=== PATIENT | female | born 1970 | race Caucasian/White ===

== ENCOUNTER 2016-10-26 21:50 | Emergency (ER) | payer OTHER ==
[2016-10-26 22:05] VITALS: BP 162/82; PULSE 73; RESP 18; TEMP 98.5
[2016-10-26 22:43] LABS: Basophils # (A) 0.1 k/uL (0-0.2); Basophils % (A) 1 %; CH 27.8; CHCM 32.6; Eosinophils # (A) 0.3 k/uL (0-0.7); Eosinophils % (A) 2 %; HCT 43.9 % (34.0-46.0); HDW 2.37; HGB 14.1 gm/dL (11.4-16.0); Luc # (Auto) 0.22; Luc % (Auto) 2; Lymphocytes # (A) 3.2 k/uL (1.0-4.8); Lymphocytes % (A) 28 %; MCH 27.6 pg (25.0-35.0); MCHC 32.2 g/dL (31.0-37.0); MCV 85.7 fL (80.0-100.0); Mean Platelet Volume 7.9; Monocytes # (A) 0.5 k/uL (0-1.0); Monocytes % (A) 4 %; Neutrophils # (A) 7.4 k/uL (1.3-7.7); Neutrophils % (A) 63 %; RBC 5.12 m/uL (3.80-5.40); RDW 12.8 % (11.5-15.5); WBC 11.7 k/uL (3.8-10.6); WBC (Perox) 11.23
[2016-10-26 22:51] LABS: Amorphous Sediment,Urine Occasional /hpf; Appearance,Urine Clear (Clear); Bacteria,Urine Rare /hpf; Bilirubin,Urine Negative (Negative); Glucose,Urine (UA) Negative (Negative); Ketones,Urine Negative (Negative); Leukocyte Esterase,Urine Small (Negative); Mucus,Urine Rare /hpf; Nitrite,Urine Negative (Negative); Particle Count 3185; Protein,Urine Negative (Negative); RBC,Urine 1 /hpf (0-5); Specific Gravity,Urine 1.015 (1.001-1.035); Squamous Epithelial Cell,Urine 2 /hpf (0-4); UA Billing (MACRO vs. MICRO) MICRO; Urobilinogen,Urine <2.0 mg/dL (<2.0); WBC,Urine 4 /hpf (0-5)
[2016-10-26 22:55] LABS: ALT 32 U/L (9-52); AST 19 U/L (14-36); Alkaline Phosphatase 85 U/L (38-126); Anion Gap 12 mmol/L; Blood Urea Nitrogen 22 mg/dL (7-17); Calcium 9.5 mg/dL (8.4-10.2); Carbon Dioxide 25 mmol/L (22-30); Chloride 102 mmol/L (98-107); Glucose 88 mg/dL (74-99); Magnesium 1.6 mg/dL (1.6-2.3); Non-African American GFR(MDRD) >60 (>60 ml/min/1.73 sqM); Sodium 139 mmol/L (137-145); Total Bilirubin 0.2 mg/dL (0.2-1.3); Total Protein 7.3 g/dL (6.3-8.2)
--- NOTE | 2016-10-27 00:14 | US ---
Exam: US ABDOMEN History: Pain. Comparison: Correlated with noncontrast CT of the abdomen and pelvis dated 08/27/11. Technique: Grayscale and color images were provided. Findings: Technically limited due to overlying bowel gas. The liver measures 14.6 cm. No focal lesion appreciated. No gallstone. No gallbladder wall thickening or pericholecystic fluid. The CBD is unremarkable. The pancreas is not well-seen secondary to overlying bowel gas. The spleen and left kidney are unremarkable. There is mild right hydronephrosis. The visualized portions of the IVC and aorta are unremarkable. Impression: Mild right hydronephrosis.
--- NOTE | 2016-10-27 00:38 | ED ---
Abdominal Pain HPI - General Chief Complaint: Abdominal Pain Stated Complaint: abdominal pain Time Seen by Provider: 10/26/16 22:11 Source: patient, RN notes reviewed Mode of arrival: ambulatory Limitations: no limitations - History of Present Illness Initial Comments: 46-year-old female presenting for abdominal pain. Patient states that she has had recurrent abdominal pain for the past 8 or 9 months. She states this pain is normally located suprapubic. States she has had extensive workup by PCP without diagnosis of this point. She states that tonight she was at work and felt sudden onset of right upper quadrant pain which was very sharp in nature. States pain felt like it started around her bellybutton and radiated to right upper quadrant and back. States the pain is mostly resolved at this point. It was associated nausea. She denies any fevers or chills. She denies any chest pain or shortness breath. She has not taking any medications for this. - Related Data Home Medications Medication Instructions Recorded Confirmed ALPRAZolam [Xanax] 0.25 mg PO DAILY PRN 10/26/16 10/26/16 Albuterol Inhaler [Ventolin Hfa 1 - 2 puff INHALATION RT-Q6H PRN 10/26/16 Inhaler] Ergocalciferol [Vitamin D2] 50,000 unit PO TU 10/26/16 10/26/16 Ibuprofen [Motrin] 800 mg PO ONCE PRN 10/26/16 10/26/16 Omeprazole Magnesium [Prilosec Otc] 20 mg PO BID 10/26/16 10/26/16 PARoxetine HCL [Paxil] 10 mg PO DAILY 10/26/16 10/26/16 Previous Rx's Medication Instructions Recorded Dicyclomine [Bentyl] 20 mg PO QID PRN #16 tablet 10/27/16 HYDROcodone/APAP 5-325MG [Roark 1 tab PO Q6HR PRN #12 tab 10/27/16 5-325] Ondansetron Odt [Zofran Odt] 4 mg PO Q8HR PRN #12 tab 10/27/16 Allergies Allergy/AdvReac Type Severity Reaction Status Date / Time sertraline HCl [From Zoloft] Allergy Nausea & Verified 10/26/16 22:14 Vomiting & Diarrhea sulfamethoxazole Allergy Rash/Hives Verified 10/26/16 22:14 [From Bactrim] trimethoprim [From Bactrim] Allergy Rash/Hives Verified 10/26/16 22:14 Corticosteroids AdvReac Unknown Verified 10/26/16 22:14 (Glucocorticoids) Review of Systems ROS Statement: Those systems with pertinent positive or pertinent negative responses have been documented in the HPI. ROS Other: All systems not noted in ROS Statement are negative. Past Medical History Additional Past Medical History / Comment(s): kidney disease, History of Any Multi-Drug Resistant Organisms: None Reported Past Surgical History: Appendectomy, Tubal Ligation Additional Past Surgical History / Comment(s): uterine ablasion Past Psychological History: Depression Smoking Status: Never smoker Past Alcohol Use History: None Reported Past Drug Use History: None Reported General Exam - General Exam Comments Initial Comments: General: Awake and Alert. No acute distress. Does not appear acutely ill. Obese. Eyes: GLO, EOM intact. No nystagmus. No scleral icterus. HENT: Atraumatic, normocephalic. Mucous membranes moist. Trachea midline. Neck: The neck is supple, there is no tenderness or JVD. Cardiovascular: Regular rate and rhythm. No murmur, rub, or gallop is appreciated. Distal pulses intact. Respiratory: Lungs are clear to auscultation bilaterally. No wheezes, rales, rhonchi. No respiratory distress. Gastrointestinal: Soft, right upper quadrant tenderness. No rebound or guarding. Non-distended. No masses or organomegaly noted. No CVA tenderness. Musculoskeletal: No tenderness. Normal ROM. No gross deformity. No strength deficits. Neurological: A&Ox3. CN II-XII grossly intact, There are no obvious motor or sensory deficits. Coordination appears grossly intact. Speech is normal. Skin: Skin is warm and dry and no rashes or lesions are noted. Psychiatric: Cooperative, appropriate mood & affect, normal judgment. Limitations: no limitations Course Vital Signs 10/26/16 22:03 Temperature 98.5 F Pulse Rate 73 Respiratory 18 Rate Blood Pressure 162/82 O2 Sat by Pulse 96 Oximetry Medical Decision Making - Medical Decision Making 46-year-old female presenting for abdominal pain. Patient is right upper quadrant tenderness on examination but no evidence of acute peritonitis this time. Lab work and imaging ordered. Ultrasound with evidence of right hydronephrosis but no evidence of acute cholecystitis - patient states a history of this in the past lasted a neurological procedure about 5 years ago. CBC with mild leukocytosis which is likely reactive. BMP is stable with stable renal function. UA with mild abnormalities but no convincing evidence of infection. Patient reevaluated remained stable. No significant return of abdominal pain. Updated on results and imaging. Discussed nonspecific etiology of pain at this time, but reassuring findings. Discussed evidence of right hydronephrosis recommended urology follow-up referral given. Discussed chronic abdominal pain and follow-up with GI for further evaluation including possible HIDA scan and colonoscopy/EGD. Patient also states this time that she is currently following up with Dr. Anderson was recently found to be AMA positive and is in process of workup for possible autoimmune disorder. Discussed continue follow-up with Dr. Anderson as well as PCP. Discussed concerning signs symptoms for immediate return to the ED. Patient is agreeable with plan and discharge home. Rx for pain and nausea medication provided. - Lab Data Result diagrams: 10/26/16 22:25 10/26/16 22:25 Lab Results 10/26/16 10/26/16 10/26/16 Range/Units 22:25 22:25 22:25 WBC 11.7 H (3.8-10.6) k/uL RBC 5.12 (3.80-5.40) m/uL Hgb 14.1 (11.4-16.0) gm/dL Hct 43.9 (34.0-46.0) % MCV 85.7 (80.0-100.0) fL MCH 27.6 (25.0-35.0) pg MCHC 32.2 (31.0-37.0) g/dL RDW 12.8 (11.5-15.5) % Plt Count 276 (150-450) k/uL Neutrophils % 63 % Lymphocytes % 28 % Monocytes % 4 % Eosinophils % 2 % Basophils % 1 % Neutrophils # 7.4 (1.3-7.7) k/uL Lymphocytes # 3.2 (1.0-4.8) k/uL Monocytes # 0.5 (0-1.0) k/uL Eosinophils # 0.3 (0-0.7) k/uL Basophils # 0.1 (0-0.2) k/uL Sodium 139 (137-145) mmol/L Potassium 4.0 (3.5-5.1) mmol/L Chloride 102 (98-107) mmol/L Carbon Dioxide 25 (22-30) mmol/L Anion Gap 12 mmol/L BUN 22 H (7-17) mg/dL Creatinine 0.90 (0.52-1.04) mg/dL Est GFR (MDRD) Af Amer >60 (>60 ml/min/1.73 sqM) Est GFR (MDRD) Non-Af >60 (>60 ml/min/1.73 sqM) Glucose 88 (74-99) mg/dL Calcium 9.5 (8.4-10.2) mg/dL Magnesium 1.6 (1.6-2.3) mg/dL Total Bilirubin 0.2 (0.2-1.3) mg/dL AST 19 (14-36) U/L ALT 32 (9-52) U/L Alkaline Phosphatase 85 (38-126) U/L Total Protein 7.3 (6.3-8.2) g/dL Albumin 4.1 (3.5-5.0) g/dL Lipase 68 (23-300) U/L Urine Color Yellow Urine Appearance Clear (Clear) Urine pH 5.0 (5.0-8.0) Ur Specific [place] 1.015 (1.001-1.035) Urine Protein Negative (Negative) Urine Glucose (UA) Negative (Negative) Urine Ketones Negative (Negative) Urine Blood Negative (Negative) Urine Nitrite Negative (Negative) Urine Bilirubin Negative (Negative) Urine Urobilinogen <2.0 (<2.0) mg/dL Ur Leukocyte Esterase Small H (Negative) Urine RBC 1 (0-5) /hpf Urine WBC 4 (0-5) /hpf Ur Squamous Epith Cells 2 (0-4) /hpf Amorphous Sediment Occasional H (None) /hpf Urine Bacteria Rare H (None) /hpf Hyaline Casts 21 H (0-2) /lpf Urine Mucus Rare H (None) /hpf Urine HCG, Qual (Not Detectd) 10/26/16 Range/Units 22:25 WBC (3.8-10.6) k/uL RBC (3.80-5.40) m/uL Hgb (11.4-16.0) gm/dL Hct (34.0-46.0) % MCV (80.0-100.0) fL MCH (25.0-35.0) pg MCHC (31.0-37.0) g/dL RDW (11.5-15.5) % Plt Count (150-450) k/uL Neutrophils % % Lymphocytes % % Monocytes % % Eosinophils % % Basophils % % Neutrophils # (1.3-7.7) k/uL Lymphocytes # (1.0-4.8) k/uL Monocytes # (0-1.0) k/uL Eosinophils # (0-0.7) k/uL Basophils # (0-0.2) k/uL Sodium (137-145) mmol/L Potassium (3.5-5.1) mmol/L Chloride (98-107) mmol/L Carbon Dioxide (22-30) mmol/L Anion Gap mmol/L BUN (7-17) mg/dL Creatinine (0.52-1.04) mg/dL Est GFR (MDRD) Af Amer (>60 ml/min/1.73 sqM) Est GFR (MDRD) Non-Af (>60 ml/min/1.73 sqM) Glucose (74-99) mg/dL Calcium (8.4-10.2) mg/dL Magnesium (1.6-2.3) mg/dL Total Bilirubin (0.2-1.3) mg/dL AST (14-36) U/L ALT (9-52) U/L Alkaline Phosphatase (38-126) U/L Total Protein (6.3-8.2) g/dL Albumin (3.5-5.0) g/dL Lipase (23-300) U/L Urine Color Urine Appearance (Clear) Urine pH (5.0-8.0) Ur Specific [place] (1.001-1.035) Urine Protein (Negative) Urine Glucose (UA) (Negative) Urine Ketones (Negative) Urine Blood (Negative) Urine Nitrite (Negative) Urine Bilirubin (Negative) Urine Urobilinogen (<2.0) mg/dL Ur Leukocyte Esterase (Negative) Urine RBC (0-5) /hpf Urine WBC (0-5) /hpf Ur Squamous Epith Cells (0-4) /hpf Amorphous Sediment (None) /hpf Urine Bacteria (None) /hpf Hyaline Casts (0-2) /lpf Urine Mucus (None) /hpf Urine HCG, Qual Not Detected (Not Detectd) - Radiology Data Radiology results: report reviewed, image reviewed Disposition Clinical Impression: Nonspecific abdominal pain, Hydronephrosis, right, Nausea Disposition: HOME SELF-CARE Condition: Stable Instructions: Abdominal Pain (ED) Prescriptions: Dicyclomine [Bentyl] 20 mg PO QID PRN #16 tablet PRN Reason: abdominal pain HYDROcodone/APAP 5-325MG [Roark 5-325] 1 tab PO Q6HR PRN #12 tab PRN Reason: Pain Ondansetron Odt [Zofran Odt] 4 mg PO Q8HR PRN #12 tab PRN Reason: Nausea Referrals: Iban Head MD [Primary Care Provider] - 1-2 days Indy Mckenna MD [STAFF PHYSICIAN] - 1-2 days Abimael Villar MD [STAFF PHYSICIAN] - 1-2 days Time of Disposition: 01:08
== END 2016-10-27 01:18 | disposition home or self-care (01) ==
LOC: EC 21:50
DX: N13.30 Unspecified hydronephrosis (principal); R11.0 Nausea; F32.9 Major depressive disorder, single episode, unspecified; Z79.899 Other long term (current) drug therapy; Z88.2 Allergy status to sulfonamides; Z88.8 Allergy status to other drugs, medicaments and biological substances; Z98.890 Other specified postprocedural states
CPT/HCPCS: 36415; 76700; 80053; 81001; 81025; 83690; 83735; 85025; 99284

== ENCOUNTER → 2016-11-24 | Outpatient (CLI) | payer OTHER ==
[2016-11-24 07:54] LABS: Blood Urea Nitrogen 15 mg/dL (7-17); Non-African American GFR(MDRD) >60 (>60 ml/min/1.73 sqM)
--- NOTE | 2016-11-24 10:25 | CT ---
EXAMINATION TYPE: CT urogram wo/w con DATE OF EXAM: 11/24/2016 HISTORY: Hydronephrosis, N13.30 CT DLP: 3653mGycm Automated Exposure Control for Dose Reduction was Utilized. CONTRAST: CT scan of the abdomen and pelvis is performed without and with IV Contrast, patient injected with 10 0 mL of Omnipaque 300. COMPARISON: Ultrasound abdomen 10/26/2016 FINDINGS: LUNG BASES: No significant abnormality is appreciated. LIVER/GB: Liver shows low attenuation possibly due to steatosis, the liver shows no mass. Gallbladder is normal. PANCREAS: No significant abnormality is seen. SPLEEN: No significant abnormality is seen. ADRENALS: No significant abnormality is seen. KIDNEYS: Mild right-sided hydronephrosis is present. Relative narrowing of the proximal ureter noted posterior to the gonadal vein on the right, more normal caliber noted more distally. There is no uret eral filling defect evident however there is a short segment of the distal ureter is not opacified. T he ureters show normal course. Right kidney shows a small low dense focus measuring 1 cm at the lower pole likely a cortical cyst. No evident renal calculi. No left-sided hydronephrosis. BOWEL: Patient is likely post appendectomy, metallic densities are present at the expected level of t he appendix. UTERUS/ADNEXA: No gross abnormality seen. LYMPH NODES: No greater than 1cm abdominal or pelvic lymph nodes are appreciated. OSSEOUS STRUCTURES: No significant abnormality is seen. OTHER: No significant additional abnormality is seen. Urinary bladder is unremarkable as seen. IMPRESSION: There is mild right-sided hydronephrosis as described. Probable cortical cyst right kidne y. Postop changes. Distal right ureter shows a normal caliber, short segment of nonvisualization of t he right ureter.
== END | disposition home or self-care (01) ==
LOC: RADCTMAIN 07:18
PROVIDERS: ATTEND Urology
DX: N13.30 Unspecified hydronephrosis (principal); L01.1 Impetiginization of other dermatoses; Z88.2 Allergy status to sulfonamides; Z88.8 Allergy status to other drugs, medicaments and biological substances
CPT/HCPCS: 82565; 84520; 74178; 36415; 74400; Q9967

== ENCOUNTER → 2017-01-12 | Outpatient (CLI) | payer OTHER ==
--- NOTE | 2017-01-13 10:37 | MM ---
Reason for exam: screening (asymptomatic). Last mammogram was performed 4 years and 6 months ago. History: Family history of breast cancer in aunt and breast cancer in grandmother. Physical Findings: A clinical breast exam by your physician is recommended on an annual basis and results should be correlated with mammographic findings. MG Screening Mammo w CAD Bilateral CC and MLO view(s) were taken. Prior study comparison: July 21, 2012, bilateral digital screening mammo w/CAD. No significant changes when compared with prior studies. ASSESSMENT: Benign, BI-RAD 2 RECOMMENDATION: Routine screening mammogram of both breasts in 1 year.
== END | disposition home or self-care (01) ==
LOC: RADMAMWWP 08:06
PROVIDERS: ATTEND Obstetrics & Gynecology
DX: Z12.31 Encounter for screening mammogram for malignant neoplasm of breast (principal)

== ENCOUNTER 2017-02-16 06:59 | Day surgery (SDC) | payer OTHER ==
[2017-02-11 13:16] VITALS: BMI 48.0
[~2017-02-16 06:59] MED LIST: HYDROmorphone 0.5 MG/0.5 ML SYRINGE IVP PRN; LACTATED RINGERS 1,000 ML IV SCH; LIDOCAINE 1% 20 ML VIAL (10MG/ML) FOR IV START INTRADERMA PRN; ONDANSETRON 4 MG/2 ML VIAL IVP ONE; Pre Op ABX Message 1 EACH MISC MISCELLANE ONE; SCOPOLAMINE 1.5MG/72HR PATCH TRANSDERM ONE; ceFAZolin 1,000 MG in DEXTROSE/WATER 1 50ML.BAG IV ONE
[2017-02-16] MEDS ORDERED: ALBUTEROL INHALER 60 PUFF/8 GM INHALER INHALATION ONE (07:58)
[2017-02-16] MEDS ORDERED: PROPOFOL 10 MG/ML 20 ML VIAL IV ONE (07:58)
[2017-02-16] MEDS ORDERED: LIDOCAINE 1% INJ 10MG/ML (20 ML MDV) ONE (07:58)
[2017-02-16] MEDS ORDERED: SUCCINYLCHOLINE CHLORIDE VIAL 200 MG/10 ML VIAL IV ONE (07:58)
[2017-02-16] MEDS ORDERED: MIDAZOLAM 2 MG/2 ML VIAL ONE (07:58)
[2017-02-16] MEDS ORDERED: fentaNYL (PF) 50 MCG/ML 2 ML AMP ONE (07:58)
[2017-02-16] MEDS ORDERED: VASOPRESSIN 20 UNIT/ML 1 ML VIAL SQ ONE (08:23)
[2017-02-16] MEDS ORDERED: GENTAMICIN 80 MG in SODIUM CHLORIDE 0.9% 500 ML IRRIGATION ONE (08:33)
[2017-02-16] MEDS ORDERED: BACITRACIN 500 UNIT/GM OINT 28.4 GM TUBE TOPICAL ONE (08:40)
[2017-02-16] MEDS ORDERED: DICYCLOMINE 20 MG TAB PO PRN (08:56)
--- NOTE | 2017-02-16 09:03 | P.OP ---
Date of Procedure: 02/16/17 Preoperative Diagnosis: Stress urinary incontinence Postoperative Diagnosis: Same Procedure(s) Performed: SPARC, pubovaginal sling, cystoscopy Anesthesia: YOLANDAA Surgeon: Abimael Villar Estimated Blood Loss (ml): 100 Pathology: none sent Condition: stable Disposition: PACU Indications for Procedure: The patient is a 46-year-old female with documented stress urinary incontinence. She does have morbid obesity. Because of the stress urinary incontinence and the morbid obesity I will do a pubovaginal sling with SPARC graft Description of Procedure: Patient brought to the operating suite and given a successful general endotracheal anesthesia. She's placed lithotomy position and sterile prep and drape. The labor sewn laterally to silk. A Gaxiola catheters introduced sterilely. A batch speculum was introduced and there is a small rectocele and a grade 1 cystocele. The anterior vaginal mucosa was elevated off the submucosa with 20 units of Pitressin and 60 mL of saline. I dissect lateral the bladder neck bilaterally. I make 2 incisions at the corners of each pubis. I passed the SPARC introducers retropubically into the vaginal space making sure not to injure the bladder. Cystoscopy is performed to make sure there is no bladder injury and there is none. I then attached the SPARC grafted introducers and pull it back retropubically into the suprapubic region. The graft lay at the bladder neck. I reinspected the bladder neck and there is no injury. The bladder neck elevates nicely upon elevation of the graft. The stent fit between the graft and the urethra. The Gaxiola catheter was replaced. Vaginal mucosa was closed with a 3-0 Vicryl. This reduces a cystocele. The redundant graft at the suprapubic incision is removed and the incisions closed with 4-0 Vicryl. The vaginal pack is placed. The labial stitches are removed. The urine remains clear. The patient's awakened and returned recovery room good condition. Blood loss is 100 mL. The patient be placed in the hospital postoperatively.
[2017-02-16] MEDS: KETOROLAC 30 MG/ML 1 ML VIAL IVP PRN ×2 (09:26→16:17)
[2017-02-16] MEDS: PARoxetine 10 MG TAB PO SCH ×2 (12:16→20:30)
[2017-02-16] MEDS: PANTOPRAZOLE 40 MG TABLET PO SCH ×2 (12:16→17:39)
[2017-02-16] MEDS: LORATADINE 10 MG TAB PO SCH ×2 (12:16→20:29)
[2017-02-16] MEDS: DEXTROSE 5%-0.45% NACL 1,000 ML IV SCH ×2 (12:29→22:20)
[2017-02-16] MEDS: HYDROcodone/APAP 5-325MG 1 EACH TAB PO PRN (21:50)
[2017-02-17 00:38] VITALS: TEMP 98.9
[2017-02-17] MEDS: HYDROcodone/APAP 5-325MG 1 EACH TAB PO PRN ×2 (04:03→09:48)
--- NOTE | 2017-02-17 06:38 | P.DS ---
Providers Attending physician: Abimael Villar Primary care physician: [facility] Course: The patient is a 46-year-old female admitted to the hospital 02/2017 for a bladder neck suspension. She underwent a pubovaginal sling with SPARC grafts. She has done well. She is afebrile. She is having some mild discomfort this morning. The catheter and packing have been removed. If she voids okay she'll be discharged home. She'll be discharged home in care of her family regular diet limited activity. She'll follow-up in the office in one week. She'll stay off work for 3 weeks. Postoperative instructions been given. Good. Patient Condition at Discharge: Good Plan - Discharge Summary New Discharge Prescriptions: New HYDROcodone/APAP 5-325MG [Docena 5-325] 1 tab PO Q4HR PRN #14 tab PRN Reason: Pain No Action Ibuprofen [Motrin] 800 mg PO TID PRN PRN Reason: Pain Albuterol Inhaler [Ventolin Hfa Inhaler] 1 - 2 puff INHALATION RT-Q6H PRN PRN Reason: Shortness Of Breath Omeprazole Magnesium [Prilosec Otc] 20 mg PO BID PARoxetine HCL [Paxil] 10 mg PO BID ALPRAZolam [Xanax] 0.25 mg PO DAILY PRN PRN Reason: Anxiety Dicyclomine [Bentyl] 20 mg PO QID PRN #16 tablet PRN Reason: abdominal pain HYDROcodone/APAP 5-325MG [Docena 5-325] 1 tab PO Q6HR PRN #12 tab PRN Reason: Pain Loratadine 10 mg PO DAILY Acetaminophen [Tylenol Extra Strength] 500 mg PO Q6H PRN PRN Reason: Pain Discharge Medication List ALPRAZolam [Xanax] 0.25 mg PO DAILY PRN 10/26/16 [History] Albuterol Inhaler [Ventolin Hfa Inhaler] 1 - 2 puff INHALATION RT-Q6H PRN [History] Ibuprofen [Motrin] 800 mg PO TID PRN 10/26/16 [History] Omeprazole Magnesium [Prilosec Otc] 20 mg PO BID 10/26/16 [History] PARoxetine HCL [Paxil] 10 mg PO BID 10/26/16 [History] Dicyclomine [Bentyl] 20 mg PO QID PRN #16 tablet 10/27/16 [Rx] HYDROcodone/APAP 5-325MG [Docena 5-325] 1 tab PO Q6HR PRN #12 tab 10/27/16 [Rx] Acetaminophen [Tylenol Extra Strength] 500 mg PO Q6H PRN 02/11/17 [History] Loratadine 10 mg PO DAILY 02/11/17 [History] HYDROcodone/APAP 5-325MG [Docena 5-325] 1 tab PO Q4HR PRN #14 tab 02/17/17 [Rx] Follow up Appointment(s)/Referral(s): Abimael Villar MD [STAFF PHYSICIAN] - 1 Week Discharge Disposition: HOME SELF-CARE
[2017-02-17] MEDS: PANTOPRAZOLE 40 MG TABLET PO SCH (09:19)
[2017-02-17 12:50] VITALS: BP 105/59; PULSE 73; RESP 12
== END 2017-02-17 13:22 | disposition home or self-care (01) ==
LOC: OR 06:59 → 6PED 08:52 → OR 02-17 13:22
PROVIDERS: ATTEND Urology
DX: N39.3 Stress incontinence (female) (male) (principal); R35.0 Frequency of micturition; N05.9 Unspecified nephritic syndrome with unspecified morphologic changes; N83.201 Unspecified ovarian cyst, right side; E66.01 Morbid (severe) obesity due to excess calories; Z68.42 Body mass index [BMI] 45.0-49.9, adult; I10 Essential (primary) hypertension; K21.9 Gastro-esophageal reflux disease without esophagitis; M32.9 Systemic lupus erythematosus, unspecified; F41.9 Anxiety disorder, unspecified; J40 Bronchitis, not specified as acute or chronic; Z79.899 Other long term (current) drug therapy; Z88.2 Allergy status to sulfonamides; Z88.8 Allergy status to other drugs, medicaments and biological substances
CPT/HCPCS: 57288; 81025; C1771; J2250; J0330; J1580; J2405; J2001; J3010; J1885; J0690; J2704; J1170

== ENCOUNTER → 2017-05-06 | Outpatient (CLI) | payer OTHER ==
--- NOTE | 2017-05-08 13:13 | US ---
EXAMINATION TYPE: US venous doppler duplex LE LT DATE OF EXAM: 05/07/2017 11:09 AM COMPARISON: NONE CLINICAL HISTORY: Pain left lower leg M25.572, Swelling R60.9. Swelling for 3 weeks. SIDE PERFORMED: TECHNIQUE: The lower extremity deep venous system is examined utilizing real time linear array sonog marj with graded compression, doppler sonography and color-flow sonography. VESSELS IMAGED: External Iliac Vein (EIV) Common Femoral Vein Deep Femoral Vein Greater Saphenous Vein * Femoral Vein Popliteal Vein Small Saphenous Vein * Proximal Calf Veins (* superficial vessels) Left Leg: Negative for DVT Grayscale, color doppler, spectral doppler imaging performed of the deep veins of the left lower extr emity. There is normal flow, compressibility, vascular waveforms. Superficial greater saphenous and small saphenous veins show diminished color flow and absent compressibility. IMPRESSION: Superficial vein thrombosis is present. No acute DVT in the left lower extremity.
== END | disposition home or self-care (01) ==
LOC: RADUSWWP 12:20
PROVIDERS: ATTEND Orthopaedic Surgery
DX: I82.812 Embolism and thrombosis of superficial veins of left lower extremity (principal); R60.9 Edema, unspecified

== ENCOUNTER 2018-05-18 21:56 | Emergency (ER) | payer OTHER ==
[2018-05-18 22:05] VITALS: RESP 18; TEMP 98.2
[2018-05-18] MEDS ORDERED: ONDANSETRON 4 MG/2 ML VIAL IVP STA (22:26)
[2018-05-18] MEDS ORDERED: PANTOPRAZOLE 40 MG/10 ML VIAL IVP STA (22:26)
[2018-05-18] MEDS ORDERED: SODIUM CHLORIDE 0.9% 1,000 ML IV STA (22:26)
[2018-05-18] MEDS ORDERED: KETOROLAC 30 MG/ML 1 ML VIAL IVP STA (22:26)
[2018-05-18] MEDS ORDERED: HYDROmorphone 0.5 MG/0.5 ML SYRINGE IVP STA (22:26)
[2018-05-18 23:01] LABS: Basophils # (A) 0.1 k/uL (0-0.2); Basophils % (A) 1 %; Eosinophils # (A) 0.4 k/uL (0-0.7); Eosinophils % (A) 3 %; HCT 46.4 % (34.0-46.0); HGB 14.7 gm/dL (11.4-16.0); Lymphocytes # (A) 3.4 k/uL (1.0-4.8); Lymphocytes % (A) 26 %; MCHC 31.6 g/dL (31.0-37.0); MCV 85.4 fL (80.0-100.0); Mean Platelet Volume 7.3; Monocytes # (A) 0.7 k/uL (0-1.0); Monocytes % (A) 6 %; Neutrophils # (A) 8.3 k/uL (1.3-7.7); Neutrophils % (A) 63 %; Platelet Count 313 k/uL (150-450); RBC 5.43 m/uL (3.80-5.40); RDW 13.4 % (11.5-15.5); WBC 13.3 k/uL (3.8-10.6)
[2018-05-18 23:10] LABS: ALT 24 U/L (9-52); AST 18 U/L (14-36); Albumin 4.3 g/dL (3.5-5.0); Alkaline Phosphatase 87 U/L (38-126); Amylase 51 U/L (30-110); Anion Gap 11 mmol/L; Blood Urea Nitrogen 28 mg/dL (7-17); Calcium 9.8 mg/dL (8.4-10.2); Carbon Dioxide 24 mmol/L (22-30); Chloride 102 mmol/L (98-107); Glucose 92 mg/dL (74-99); Lipase 128 U/L (23-300); Potassium 4.5 mmol/L (3.5-5.1); Sodium 137 mmol/L (137-145); Total Bilirubin 0.4 mg/dL (0.2-1.3); Total Protein 7.8 g/dL (6.3-8.2)
--- NOTE | 2018-05-18 23:34 | US ---
EXAMINATION TYPE: US gallbladder DATE OF EXAM: 05/18/2018 COMPARISON: NONE CLINICAL HISTORY: Pain. RUQ Pain. Exam limitations due to body habitus. EXAM MEASUREMENTS: Liver Length: 15.8 cm Gallbladder Wall: 0.3 cm CBD: 0.4 cm Right Kidney: 12.3 x 6.0 x 4.3 cm Pancreas: Obscured by bowel gas Liver: Increased attenuation Gallbladder: wnl Evidence for sonographic Drew's sign: No CBD: wnl Right Kidney: No hydronephrosis or masses seen IMPRESSION: Normal exam. No gallstones or dilated ducts. No focal liver defect.
--- NOTE | 2018-05-18 23:41 | ED ---
Abdominal Pain HPI - General Source: patient, RN notes reviewed, old records reviewed Mode of arrival: ambulatory Limitations: no limitations <Brittaney Barker - Last Filed: 05/19/18 14:11> <Chantale Randolph - Last Filed: 05/21/18 02:04> - General Chief Complaint: Abdominal Pain Stated Complaint: Abd pain/Back pain Time Seen by Provider: 05/18/18 22:07 - History of Present Illness Initial Comments: Patient is a 47 year old female with CC of right abdominal pain, radiating towards the shoulder and nausea. Patient reports she has been having symptoms intermittently for the past few days. Patient states that the pain is worse today while at work and she had almost passed out due to the pain. She reports pain is worse with eating. Patient denies fevers or chills. No recent vomiting. She went to PCP today and had labs, and discussed the problem. Patient reports she had worsenign pain tonight. (Brittaney Barker) - Related Data Home Medications Medication Instructions Recorded Confirmed ALPRAZolam [Xanax] 0.25 mg PO DAILY PRN 10/26/16 05/18/18 Omeprazole Magnesium [Prilosec Otc] 20 mg PO BID 10/26/16 05/18/18 Albuterol Nebulized [Ventolin 2.5 mg INHALATION RT-Q6H PRN 05/18/18 05/18/18 Nebulized] Atenolol [Tenormin] 50 mg PO DAILY 05/18/18 05/18/18 Ergocalciferol [Vitamin D2] 50,000 unit PO SUWE 05/18/18 05/18/18 Fluticasone Propionate [Flovent 2 puff INHALATION RT-BID 05/18/18 05/18/18 Hfa 220 mcg] Lisinopril [Zestril] 20 mg PO DAILY 05/18/18 05/18/18 Oxybutynin Chloride 5 mg PO BID 05/18/18 05/18/18 PARoxetine [Paxil] 20 mg PO BID 05/18/18 05/18/18 Previous Rx's Medication Instructions Recorded HYDROcodone/APAP 5-325MG [[place] 1 tab PO Q6HR PRN #10 tab 05/19/18 5-325] Ibuprofen 600 mg PO TID #20 tablet 05/19/18 Ondansetron [Zofran ODT] 4 mg PO Q8HR #20 tab 05/19/18 Allergies Allergy/AdvReac Type Severity Reaction Status Date / Time sulfamethoxazole Allergy Rash/Hives Verified 05/18/18 22:23 [From Bactrim] trimethoprim [From Bactrim] Allergy Rash/Hives Verified 05/18/18 22:23 Corticosteroids AdvReac skin Verified 05/18/18 22:23 (Glucocorticoids) flushing and swelling sertraline HCl [From Zoloft] AdvReac Nausea & Verified 05/18/18 22:23 Vomiting & Diarrhea Review of Systems ROS Other: All systems not noted in ROS Statement are negative. <Brittaney Barker - Last Filed: 05/19/18 14:11> ROS Other: All systems not noted in ROS Statement are negative. <Chantale Randolph - Last Filed: 05/21/18 02:04> ROS Statement: Those systems with pertinent positive or pertinent negative responses have been documented in the HPI. Past Medical History Past Medical History: Hypertension Additional Past Medical History / Comment(s): kidney disease, History of Any Multi-Drug Resistant Organisms: None Reported Past Surgical History: Appendectomy, Tubal Ligation, Uterine Ablation Additional Past Surgical History / Comment(s): Bladder lift. Past Anesthesia/Blood Transfusion Reactions: Postoperative Nausea & Vomiting ( PONV) Additional Past Anesthesia/Blood Transfusion Reaction / Comment(s): no hx blood transfusion,vertigo Past Psychological History: Depression Smoking Status: Never smoker Past Alcohol Use History: Rare Past Drug Use History: None Reported - Past Family History Mother Family Medical History: No Reported History Father Family Medical History: Deep Vein Thrombosis (DVT) <Brittaney Barker - Last Filed: 05/19/18 14:11> General Exam Limitations: no limitations General appearance: alert, in no apparent distress Head exam: Present: atraumatic, normocephalic, normal inspection Eye exam: Present: normal appearance, PERRL, EOMI. Absent: scleral icterus, conjunctival injection, periorbital swelling ENT exam: Present: normal exam, mucous membranes moist Neck exam: Present: normal inspection. Absent: tenderness, meningismus, lymphadenopathy Respiratory exam: Present: normal lung sounds bilaterally. Absent: respiratory distress, wheezes, rales, rhonchi, stridor Cardiovascular Exam: Present: regular rate, normal rhythm, normal heart sounds. Absent: systolic murmur, diastolic murmur, rubs, gallop, clicks GI/Abdominal exam: Present: soft, tenderness (RUQ tenderness), normal bowel sounds. Absent: distended, guarding, rebound, rigid Back exam: Present: normal inspection Neurological exam: Present: alert, oriented X3, CN II-XII intact Psychiatric exam: Present: normal affect, normal mood Skin exam: Present: warm, dry, intact, normal color. Absent: rash <Brittaney Barker - Last Filed: 05/19/18 14:11> <Chantale Randolph - Last Filed: 05/21/18 02:04> - General Exam Comments Initial Comments: This is a 47 year old female, no distress. (Brittaney Barker) Vital Signs 05/18/18 05/19/18 22:00 00:28 Temperature 98.2 F Pulse Rate 55 L 57 L Respiratory 18 18 Rate Blood Pressure 150/89 139/76 O2 Sat by Pulse 99 97 Oximetry Medical Decision Making - Lab Data Result diagrams: 05/18/18 22:39 05/18/18 22:39 - Radiology Data Radiology results: report reviewed <Brittaney Barker - Last Filed: 05/19/18 14:11> - Lab Data Result diagrams: 05/18/18 22:39 05/18/18 22:39 <Chantale Randolph - Last Filed: 05/21/18 02:04> - Medical Decision Making 47 year old female presents today with biliary colic symptoms. Patient labs were reviewed and normal. She wa given EKG shows no acute changes. US gallbladder was normal.Discused patient needs to follow up with surgeon and possibly schedule hidascan. Discussed low fat diet. Discussed return parameters. (Brittaney Barker) I was available for consultation in the emergency department. The history and physical exam were done by the midlevel provider. I was consulted for this patient's care. I reviewed the case with the midlevel provider and based on their presentation of the patient, I agree with the assessment, medical decision making and plan of care as documented. (Chantale Randolph) - Lab Data Lab Results 05/18/18 05/18/18 05/18/18 Range/Units 22:39 22:39 22:39 WBC 13.3 H (3.8-10.6) k/uL RBC 5.43 H (3.80-5.40) m/uL Hgb 14.7 (11.4-16.0) gm/dL Hct 46.4 H (34.0-46.0) % MCV 85.4 (80.0-100.0) fL MCH 27.0 (25.0-35.0) pg MCHC 31.6 (31.0-37.0) g/dL RDW 13.4 (11.5-15.5) % Plt Count 313 (150-450) k/uL Neutrophils % 63 % Lymphocytes % 26 % Monocytes % 6 % Eosinophils % 3 % Basophils % 1 % Neutrophils # 8.3 H (1.3-7.7) k/uL Lymphocytes # 3.4 (1.0-4.8) k/uL Monocytes # 0.7 (0-1.0) k/uL Eosinophils # 0.4 (0-0.7) k/uL Basophils # 0.1 (0-0.2) k/uL Sodium 137 (137-145) mmol/L Potassium 4.5 (3.5-5.1) mmol/L Chloride 102 (98-107) mmol/L Carbon Dioxide 24 (22-30) mmol/L Anion Gap 11 mmol/L BUN 28 H (7-17) mg/dL Creatinine 0.69 (0.52-1.04) mg/dL Est GFR (CKD-EPI)AfAm >90 (>60 ml/min/1.73 sqM) Est GFR (CKD-EPI)NonAf >90 (>60 ml/min/1.73 sqM) Glucose 92 (74-99) mg/dL Calcium 9.8 (8.4-10.2) mg/dL Total Bilirubin 0.4 (0.2-1.3) mg/dL AST 18 (14-36) U/L ALT 24 (9-52) U/L Alkaline Phosphatase 87 (38-126) U/L Troponin I <0.012 (0.000-0.034) ng/mL Total Protein 7.8 (6.3-8.2) g/dL Albumin 4.3 (3.5-5.0) g/dL Amylase 51 (30-110) U/L Lipase 128 (23-300) U/L Urine Color Urine Appearance (Clear) Urine pH (5.0-8.0) Ur Specific [place] (1.001-1.035) Urine Protein (Negative) Urine Glucose (UA) (Negative) Urine Ketones (Negative) Urine Blood (Negative) Urine Nitrite (Negative) Urine Bilirubin (Negative) Urine Urobilinogen (<2.0) mg/dL Ur Leukocyte Esterase (Negative) Urine RBC (0-5) /hpf Urine WBC (0-5) /hpf Ur Squamous Epith Cells (0-4) /hpf Urine Bacteria (None) /hpf Hyaline Casts (0-2) /lpf Urine Mucus (None) /hpf 05/19/18 Range/Units 00:10 WBC (3.8-10.6) k/uL RBC (3.80-5.40) m/uL Hgb (11.4-16.0) gm/dL Hct (34.0-46.0) % MCV (80.0-100.0) fL MCH (25.0-35.0) pg MCHC (31.0-37.0) g/dL RDW (11.5-15.5) % Plt Count (150-450) k/uL Neutrophils % % Lymphocytes % % Monocytes % % Eosinophils % % Basophils % % Neutrophils # (1.3-7.7) k/uL Lymphocytes # (1.0-4.8) k/uL Monocytes # (0-1.0) k/uL Eosinophils # (0-0.7) k/uL Basophils # (0-0.2) k/uL Sodium (137-145) mmol/L Potassium (3.5-5.1) mmol/L Chloride (98-107) mmol/L Carbon Dioxide (22-30) mmol/L Anion Gap mmol/L BUN (7-17) mg/dL Creatinine (0.52-1.04) mg/dL Est GFR (CKD-EPI)AfAm (>60 ml/min/1.73 sqM) Est GFR (CKD-EPI)NonAf (>60 ml/min/1.73 sqM) Glucose (74-99) mg/dL Calcium (8.4-10.2) mg/dL Total Bilirubin (0.2-1.3) mg/dL AST (14-36) U/L ALT (9-52) U/L Alkaline Phosphatase (38-126) U/L Troponin I (0.000-0.034) ng/mL Total Protein (6.3-8.2) g/dL Albumin (3.5-5.0) g/dL Amylase (30-110) U/L Lipase (23-300) U/L Urine Color Light Yellow Urine Appearance Cloudy H (Clear) Urine pH 5.0 (5.0-8.0) Ur Specific [place] 1.013 (1.001-1.035) Urine Protein Negative (Negative) Urine Glucose (UA) Negative (Negative) Urine Ketones Negative (Negative) Urine Blood Negative (Negative) Urine Nitrite Negative (Negative) Urine Bilirubin Negative (Negative) Urine Urobilinogen <2.0 (<2.0) mg/dL Ur Leukocyte Esterase Large H (Negative) Urine RBC 2 (0-5) /hpf Urine WBC 13 H (0-5) /hpf Ur Squamous Epith Cells 9 H (0-4) /hpf Urine Bacteria Moderate H (None) /hpf Hyaline Casts 4 H (0-2) /lpf Urine Mucus Rare H (None) /hpf 05/19/18 01:28 EKG performed at 2336 shows sinus rhythm possible inferior infarct risk management intern. Abnormal EKG. Patient rate 71 minute. Verbal sick 150 ms. QRS ration is 102 ms. QT QTc is 07/17/1929/440 ms. ( Brittaney Barker) - Radiology Data Normal Gallbladder ultrasound. (Brittaney Barker) Disposition Is patient prescribed a controlled substance at d/c from ED?: No Time of Disposition: 01:29 <Brittaney Barker - Last Filed: 05/19/18 14:11> <Chantale Randolph - Last Filed: 05/21/18 02:04> Clinical Impression: Biliary colic Disposition: HOME SELF-CARE Condition: Good Instructions: Biliary Colic (ED), Low Fat Diet (ED) Additional Instructions: Patient advised to follow-up with primary care physician. Follow-up with surgeon as well. Patient should've a bland diet. Return to emergency department if any alarming signs or symptoms occur. Prescriptions: HYDROcodone/APAP 5-325MG [[place] 5-325] 1 tab PO Q6HR PRN #10 tab PRN Reason: Pain Ibuprofen 600 mg PO TID #20 tablet Ondansetron [Zofran ODT] 4 mg PO Q8HR #20 tab Referrals: Iban Head MD [Primary Care Provider] - 1-2 days Alyson Campos DO [Doctor of Osteopathic Medicine] - 1-2 days Erasto Shaw MD [STAFF PHYSICIAN] - 1-2 days
[2018-05-19 00:29] VITALS: BP 139/76; PULSE 57
[2018-05-19 00:34] LABS: Appearance,Urine Cloudy (Clear); Bacteria,Urine Moderate /hpf; Bilirubin,Urine Negative (Negative); Blood,Urine Negative (Negative); Color,Urine Light Yellow; Glucose,Urine (UA) Negative (Negative); Hyaline Casts,Urine 4 /lpf (0-2); Ketones,Urine Negative (Negative); Leukocyte Esterase,Urine Large (Negative); Mucus,Urine Rare /hpf; Nitrite,Urine Negative (Negative); Protein,Urine Negative (Negative); RBC,Urine 2 /hpf (0-5); Specific Gravity,Urine 1.013 (1.001-1.035); Squamous Epithelial Cell,Urine 9 /hpf (0-4); Urobilinogen,Urine <2.0 mg/dL (<2.0); WBC,Urine 13 /hpf (0-5)
--- NOTE | 2018-05-19 00:54 | XR ---
EXAMINATION TYPE: XR KUB DATE OF EXAM: 05/19/2018 COMPARISON: NONE HISTORY: Right upper quadrant pain TECHNIQUE: 2 views FINDINGS: There is no sign of intestinal obstruction or pneumoperitoneum. Fecal pattern is normal. Th ere are are chest leads. Lung bases are clear. There are surgical clips in the right mid abdomen. IMPRESSION: Nonacute abdomen. No change.
== END 2018-05-19 01:56 | disposition home or self-care (01) ==
LOC: EC 21:56
DX: K80.50 Calculus of bile duct without cholangitis or cholecystitis without obstruction (principal); I10 Essential (primary) hypertension; F32.9 Major depressive disorder, single episode, unspecified; Z90.49 Acquired absence of other specified parts of digestive tract; Z98.51 Tubal ligation status; Z79.51 Long term (current) use of inhaled steroids; Z79.899 Other long term (current) drug therapy; Z88.2 Allergy status to sulfonamides; Z88.8 Allergy status to other drugs, medicaments and biological substances
CPT/HCPCS: 36415; 93005; 80053; 82150; 83690; 84484; 85025; 81001; 87086; 74018; 76705; 99285; 96374; 96375 ×3; 96361; J2405; J1885; C9113; J1170

== ENCOUNTER → 2018-05-26 | Outpatient (CLI) | payer OTHER ==
--- NOTE | 2018-05-26 15:32 | NM ---
Nuclear medicine hepatobiliary scan. HISTORY: Pain. DOSAGE: The patient received 8 ounces of ensure plus and 4.7 mCi of Technetium 99m Choletec. FINDINGS: There is normal hepatic extraction. The gallbladder is seen by 50 minutes. There is bilia ry to bowel clearance by 20 minutes. Ejection fraction is 48%. IMPRESSION: 1. Normal filling of radiotracer within the gallbladder. 2. Ejection fraction of 48%
== END | disposition home or self-care (01) ==
LOC: RADNMMAIN 12:55
PROVIDERS: ATTEND Surgery
DX: K81.1 Chronic cholecystitis (principal)
CPT/HCPCS: 78226; A9537

== ENCOUNTER 2018-06-06 07:27 | Day surgery (SDC) | payer OTHER ==
[2018-06-02 13:06] VITALS: BMI 46.1
[~2018-06-06 07:27] MED LIST changes: -ONDANSETRON 4 MG/2 ML VIAL IVP ONE; -Pre Op ABX Message 1 EACH MISC MISCELLANE ONE; -SCOPOLAMINE 1.5MG/72HR PATCH TRANSDERM ONE; -ceFAZolin 1,000 MG in DEXTROSE/WATER 1 50ML.BAG IV ONE
[2018-06-06 07:49] VITALS: TEMP 97.7
[2018-06-06] MEDS ORDERED: MIDAZOLAM 2 MG/2 ML VIAL ONE (08:27)
[2018-06-06] MEDS ORDERED: PROPOFOL 10 MG/ML 20 ML VIAL IV ONE (08:27)
--- NOTE | 2018-06-06 08:29 | P.GSHP ---
History of Present Illness H&P Date: 06/06/18 Chief Complaint: GERD This a 47-year-old female who presents today for EGD. She's had issues with GERD. Past Medical History Past Medical History: Deep Vein Thrombosis (DVT), Hypertension Additional Past Medical History / Comment(s): Kidney disease, cold sore. History of Any Multi-Drug Resistant Organisms: None Reported Past Surgical History: Appendectomy, Tubal Ligation, Uterine Ablation Additional Past Surgical History / Comment(s): Bladder lift. Past Anesthesia/Blood Transfusion Reactions: Postoperative Nausea & Vomiting ( PONV) Additional Past Anesthesia/Blood Transfusion Reaction / Comment(s): no hx blood transfusion,vertigo Smoking Status: Never smoker - Past Family History Mother Family Medical History: No Reported History Father Family Medical History: Deep Vein Thrombosis (DVT) Medications and Allergies Home Medications Medication Instructions Recorded Confirmed Type ALPRAZolam [Xanax] 0.25 mg PO DAILY PRN 10/26/16 06/02/18 History Omeprazole Magnesium [Prilosec Otc] 20 mg PO BID 10/26/16 06/02/18 History Albuterol Nebulized [Ventolin 2.5 mg INHALATION RT-Q6H PRN 05/18/18 06/06/18 History Nebulized] Atenolol [Tenormin] 50 mg PO DAILY 05/18/18 06/02/18 History Ergocalciferol [Vitamin D2] 50,000 unit PO SUWE 05/18/18 06/02/18 History Fluticasone Propionate [Flovent 2 puff INHALATION RT-BID 05/18/18 06/02/18 History Hfa 220 mcg] Lisinopril [Zestril] 20 mg PO DAILY 05/18/18 06/02/18 History Oxybutynin Chloride 5 mg PO BID 05/18/18 06/06/18 History PARoxetine [Paxil] 20 mg PO BID 05/18/18 06/02/18 History HYDROcodone/APAP 5-325MG [[place] 1 tab PO Q6HR PRN #10 tab 05/19/18 06/06/18 Rx 5-325] Ibuprofen 600 mg PO TID #20 tablet 05/19/18 06/02/18 Rx Ondansetron [Zofran ODT] 4 mg PO Q8HR #20 tab 05/19/18 06/06/18 Rx Allergies Allergy/AdvReac Type Severity Reaction Status Date / Time sulfamethoxazole Allergy Rash/Hives Verified 06/02/18 14:04 [From Bactrim] trimethoprim [From Bactrim] Allergy Rash/Hives Verified 06/02/18 14:04 Corticosteroids AdvReac skin Verified 06/02/18 14:04 (Glucocorticoids) flushing and swelling sertraline HCl [From Zoloft] AdvReac Nausea & Verified 06/02/18 14:04 Vomiting & Diarrhea Surgical - Exam Vital Signs Temp Pulse Resp BP Pulse Ox 97.7 F 53 L 16 138/61 96 06/06/18 07:48 06/06/18 07:48 06/06/18 07:48 06/06/18 07:48 06/06/18 07:48 BMI 46 - General well developed, well nourished, no distress - Eyes PERRL - ENT normal pinna - Neck no masses - Cardiovascular Rhythm: regular - Abdomen Abdomen: soft, non tender Assessment and Plan Assessment: GERD. We'll perform EGD.
--- NOTE | 2018-06-06 08:40 | P.OP ---
Date of Procedure: 06/06/18 Preoperative Diagnosis: GERD Postoperative Diagnosis: Antral gastritis Hiatal hernia Mild esophagitis Procedure(s) Performed: EGD Anesthesia: MAC Surgeon: Erasto Shaw Pathology: other (, Esophagus, antrum) Condition: stable Disposition: PACU Description of Procedure: The patient's placed on the endoscopy table in the lateral position. She received IV sedation. The gastroscope placed oropharynx and passed in the esophagus and stomach. Scope was then placed through the pylorus. The first and second portion of the duodenum appeared normal. The scope was then brought back the antrum this appeared mildly inflamed. A biopsies performed. The scope was then retroflexed and remainder stomach appeared normal. There was a hiatal hernia visualized. The GE junction was at 38 7 is. The distal esophagus appeared mildly inflamed. A biopsies performed. The proximal esophagus appeared normal. Scope withdrawn for patient.
[2018-06-06 09:04] VITALS: BP 121/62; PULSE 53; RESP 18
== END 2018-06-06 09:19 | disposition home or self-care (01) ==
LOC: ORWHC2ENDO 07:27
PROVIDERS: ATTEND Surgery
DX: K29.50 Unspecified chronic gastritis without bleeding (principal); K21.0 Gastro-esophageal reflux disease with esophagitis; I10 Essential (primary) hypertension; J45.909 Unspecified asthma, uncomplicated; K44.9 Diaphragmatic hernia without obstruction or gangrene; Z86.718 Personal history of other venous thrombosis and embolism; Z79.899 Other long term (current) drug therapy; Z79.51 Long term (current) use of inhaled steroids; Z79.1 Long term (current) use of non-steroidal anti-inflammatories (NSAID); Z88.5 Allergy status to narcotic agent; Z88.2 Allergy status to sulfonamides; Z88.8 Allergy status to other drugs, medicaments and biological substances
CPT/HCPCS: 81025; 88305; 43239; J2250; J2704

== ENCOUNTER → 2018-06-16 | Outpatient (CLI) | payer OTHER ==
[2018-06-16 12:45] LABS: HCT 38.4 % (34.0-46.0); HGB 12.7 gm/dL (11.4-16.0); MCH 28.1 pg (25.0-35.0); MCHC 32.9 g/dL (31.0-37.0); MCV 85.2 fL (80.0-100.0); Mean Platelet Volume 7.2; Platelet Count 257 k/uL (150-450); RBC 4.51 m/uL (3.80-5.40); RDW 13.7 % (11.5-15.5); WBC 8.3 k/uL (3.8-10.6)
[2018-06-16 12:54] LABS: Potassium 4.1 mmol/L (3.5-5.1)
== END | disposition home or self-care (01) ==
LOC: LABWHC1 11:55
PROVIDERS: ATTEND Surgery
DX: Z01.812 Encounter for preprocedural laboratory examination (principal); K21.9 Gastro-esophageal reflux disease without esophagitis
CPT/HCPCS: 80051; 85027

== ENCOUNTER 2018-06-19 07:45 | Observation (INO) | payer OTHER ==
[~2018-06-19 07:45] MED LIST changes: +HEPARIN SODIUM,PORCINE 5,000 UNIT/ML 1 ML VIAL SQ ONE; -HYDROmorphone 0.5 MG/0.5 ML SYRINGE IVP PRN; -LIDOCAINE 1% 20 ML VIAL (10MG/ML) FOR IV START INTRADERMA PRN; +MIDAZOLAM (PF) 2 MG/2 ML VIAL IV PRN; +SCOPOLAMINE 1.5MG/72HR PATCH TRANSDERM ONE
[2018-06-19] MEDS: ONDANSETRON 4 MG/2 ML VIAL IVP ONE ×2 (08:35→11:24)
--- NOTE | 2018-06-19 08:42 | P.GSHP ---
History of Present Illness H&P Date: 06/19/18 Chief Complaint: GERD This is a 48-year-old female referred from Ryan Bartlett NP. MiThe patient has had long-standing problems with reflux esophagitis. The patient underwent recent EGD is found have evidence of esophagitis. Patient has been well informed on the procedure of laparoscopic Jose C fundoplication. The patient is aware the risk of the conversion to the open procedure, risk of injury to the stomach, liver and spleen. The patient is also a risk of recurrent GERD and dysphagia symptoms. The patient understands there is a postoperative diet of full liquids for 2 weeks after surgery. Past Medical History Past Medical History: Hypertension Additional Past Medical History / Comment(s): SUPERICIAL BLOOD CLOT, DID REQUIRE HEPARIN. INFLAMMATION OF RIGHT KIDNEY. cold sore. History of Any Multi-Drug Resistant Organisms: None Reported Past Surgical History: Appendectomy, Prostate Surgery, Tubal Ligation, Uterine Ablation Additional Past Surgical History / Comment(s): 06/06/18 EGD. DURING APPENDECTOMY , IT WAS NOTED IT WAS "PULLING ON KIDNEY" AND BLOCKING DRAINAGE. Bladder lift. Past Anesthesia/Blood Transfusion Reactions: Postoperative Nausea & Vomiting ( PONV) Additional Past Anesthesia/Blood Transfusion Reaction / Comment(s): no hx blood transfusion,vertigo Past Psychological History: Depression Smoking Status: Never smoker Past Alcohol Use History: Occasional Past Drug Use History: None Reported - Past Family History Mother Family Medical History: No Reported History Father Family Medical History: Deep Vein Thrombosis (DVT) Medications and Allergies Home Medications Medication Instructions Recorded Confirmed Type ALPRAZolam [Xanax] 0.25 mg PO DAILY PRN 10/26/16 06/19/18 History Omeprazole Magnesium [Prilosec Otc] 20 mg PO BID 10/26/16 06/16/18 History Albuterol Nebulized [Ventolin 2.5 mg INHALATION RT-Q6H PRN 05/18/18 06/19/18 History Nebulized] Atenolol [Tenormin] 50 mg PO QAM 05/18/18 06/16/18 History Ergocalciferol [Vitamin D2] 50,000 unit PO SUWE 05/18/18 06/16/18 History Fluticasone Propionate [Flovent 2 puff INHALATION RT-BID 05/18/18 06/19/18 History Hfa 220 mcg] Lisinopril [Zestril] 20 mg PO QAM 05/18/18 06/16/18 History Oxybutynin Chloride 5 mg PO BID 05/18/18 06/19/18 History PARoxetine [Paxil] 20 mg PO QAM 05/18/18 06/16/18 History HYDROcodone/APAP 5-325MG [[place] 1 tab PO Q6HR PRN #10 tab 05/19/18 06/19/18 Rx 5-325] Ibuprofen 600 mg PO TID PRN 06/16/18 06/16/18 History Ondansetron [Zofran ODT] 4 mg PO Q8HR PRN 06/16/18 06/19/18 History Allergies Allergy/AdvReac Type Severity Reaction Status Date / Time sulfamethoxazole Allergy Rash/Hives Verified 06/19/18 08:17 [From Bactrim] trimethoprim [From Bactrim] Allergy Rash/Hives Verified 06/19/18 08:17 Corticosteroids AdvReac skin Verified 06/19/18 08:17 (Glucocorticoids) flushing and swelling sertraline HCl [From Zoloft] AdvReac Nausea & Verified 06/19/18 08:17 Vomiting & Diarrhea Surgical - Exam Vital Signs Temp Pulse Resp BP Pulse Ox 98.2 F 52 L 16 111/63 96 06/19/18 08:19 06/19/18 08:19 06/19/18 08:19 06/19/18 08:19 06/19/18 08:19 - General well developed, well nourished, no distress - Eyes PERRL - ENT normal pinna - Neck no masses - Respiratory normal expansion - Cardiovascular Rhythm: regular - Abdomen Abdomen: soft, non tender Assessment and Plan Assessment: GERD. We'll perform laparoscopic Jose C fundal plication.
[2018-06-19] MEDS ORDERED: MIDAZOLAM 2 MG/2 ML VIAL ONE (09:09)
[2018-06-19] MEDS ORDERED: SUCCINYLCHOLINE CHLORIDE 100 MG/5 ML SYR IV ONE (09:09)
[2018-06-19] MEDS ORDERED: LIDOCAINE 1% INJ 10MG/ML (20 ML MDV) ONE (09:09)
[2018-06-19] MEDS ORDERED: GLYCOPYRROLATE 0.2 MG/ML 2 ML VIAL ONE (09:09)
[2018-06-19] MEDS ORDERED: PROPOFOL 10 MG/ML 20 ML VIAL IV ONE (09:09)
[2018-06-19] MEDS ORDERED: NEOSTIGMINE 1 MG/ML 10 ML VIAL ONE (09:09)
[2018-06-19] MEDS ORDERED: fentaNYL (PF) 50 MCG/ML 2 ML AMP ONE (09:09)
[2018-06-19] MEDS ORDERED: MORPHINE SULFATE IR 15 MG TABLET ONE (09:09)
[2018-06-19] MEDS ORDERED: KETOROLAC 30 MG/ML 1 ML VIAL ONE (09:09)
[2018-06-19] MEDS ORDERED: BUPIVACAIN-EPI 0.5%-1:200,000 30 ML VIAL SQ ONE (09:43)
[2018-06-19] MEDS ORDERED: LACTATED RINGERS 1,000 ML IV ONE (10:04)
--- NOTE | 2018-06-19 10:25 | P.OP ---
Date of Procedure: 06/19/18 Preoperative Diagnosis: GERD Postoperative Diagnosis: GERD Procedure(s) Performed: Laparoscopic Jose C fundal plication Anesthesia: SHARON Surgeon: Erasto Shaw Estimated Blood Loss (ml): 5 Pathology: none sent Condition: stable Disposition: PACU Description of Procedure: HThe patient was placed on the operating table in the supine position. The patient received general anesthesia. And was placed in dorsal lithotomy position. The patient was prepped and draped in the usual sterile fashion. The skin incision sites were anesthetized with 1% local Xylocaine. The skin was incised in the left periumbilical area and then using a blade less 5 mm trocar under direct visualization panel cavity was entered. After adequate insufflation the laparoscope was then placed into the peritoneal cavity. Next a 5 mm trochars placed in the right epigastric position. Another 5 millimeter trocar the right lateral position. Another 5 millimeter trocar in the left lateral position a 5 mm trocar is placed in the left epigastric position. And then the initial 5 mm trocar was exchanged for a 10 mm trocar. The left lateral lobe liver was retracted. The hernia was seen. The crural defect was then dissected using the Harmonic scissors device. A 360 crural dissection was performed the esophagus stomach was reduced back into the peritoneal Cavity. The crural defect was then closed using 2-0 Ethibond suture. Next the fundus of the stomach was mobilized using the [place] scissors device. and then a 58-Thai bougie dilator was placed oropharynx passed into the esophagus and stomach the fundal plication wrap was then performed by grasping the fundus posteriorly and bringing it around the esophagus and stomach fundoplication was then performed using 2-0 Ethibond suture. Care was taken that the fundal location rested over top of the intra-abdominal esophagus. There was no injury seen to the stomach or esophagus. The dilator was then withdrawn. The abdomen was irrigated there is no bleeding seen. The trochars were then withdrawn and then skin incision sites were closed using 3-0 Monocryl suture Steri-Strips are applied. Patient thought procedure well and sent to recovery room in stable condition.
[2018-06-19] MEDS: HYDROmorphone 0.5 MG/0.5 ML SYRINGE IVP PRN ×4 (10:49→20:24)
[2018-06-19] MEDS ORDERED: HYDROcodone/APAP 5-325MG 1 EACH TAB PO PRN (12:27)
[2018-06-19] MEDS ORDERED: ALBUTEROL NEBULIZED 2.5 MG/3 ML INHALATION PRN (12:27)
[2018-06-19] MEDS ORDERED: ALPRAZolam 0.25 MG TAB PO PRN (12:27)
[2018-06-19 13:34] VITALS: BMI 46.7
[2018-06-19] MEDS: D5-0.45% NACL WITH KCL 20MEQ/L 1,000 ML IV SCH ×2 (14:50→20:21)
--- NOTE | 2018-06-19 15:11 | FL ---
EXAMINATION TYPE: FL esophagus cervic/pharynx DATE OF EXAM: 06/19/2018 HISTORY: Status post Jose C fundoplication. COMPARISON: NONE TECHNIQUE: A single contrast esophagram is performed utilizing 50 mL of [id number]-[id number]. 40 seconds of fl uoroscopy time was utilized with 16 images saved. FINDINGS: The patient swallowed contrast without difficulty or delay. Esophageal peristalsis and mo tility are within normal limits. There is good flow of contrast along the diaphragmatic hiatus into t he stomach, there is no evidence of contrast extravasation to suggest leak. No persistent hiatal gudelia ia is seen. Patient remains asymptomatic. IMPRESSION: No evidence of leak or significant obstruction status post [place] fundoplication surgery earlier today.
[2018-06-19] MEDS: OXYBUTYNIN CHLORIDE 5 MG TAB PO SCH (20:21)
[2018-06-19] MEDS: FLUTICASONE 220 MCG INHALER INHALATION SCH (21:27)
[2018-06-20] MEDS: ONDANSETRON 4 MG/2 ML VIAL IVP PRN ×2 (01:26→06:27)
[2018-06-20] MEDS: HYDROcodone/APAP 7.5-325MG 1 EACH TAB PO PRN ×3 (01:26→12:52)
[2018-06-20] MEDS: D5-0.45% NACL WITH KCL 20MEQ/L 1,000 ML IV SCH ×2 (05:53→13:07)
[2018-06-20] MEDS: FLUTICASONE 220 MCG INHALER INHALATION SCH (07:25)
[2018-06-20] MEDS ORDERED: ATENOLOL 50 MG TAB PO SCH (09:00)
[2018-06-20] MEDS ORDERED: LISINOPRIL 20 MG TAB PO SCH (09:00)
[2018-06-20] MEDS ORDERED: PARoxetine 20 MG TAB PO SCH (09:00)
[2018-06-20] MEDS: OXYBUTYNIN CHLORIDE 5 MG TAB PO SCH (09:16)
[2018-06-20 12:28] VITALS: BP 109/58; PULSE 76; RESP 16; TEMP 98.7
--- NOTE | 2018-06-20 12:54 | P.DS ---
Providers Date of admission: 06/20/18 01:52 Expected date of discharge: 06/20/18 Attending physician: Erasto Shaw Primary care physician: Iban [facility] Hospital Course: 48-year-old female who underwent laparoscopic Jose C fundoplication by Dr. Shaw. The patient is doing well postoperatively without, medications. Esophagram was completed which was negative for obstruction or leak. She is tolerating clear liquid diet. Vital signs are stable. She is stable for discharge home today. She is to follow up on an outpatient basis. Please see EMR for further hospital course details. DISCHARGE DIAGNOSIS: 1. GERD, status post endoscopic Jose C fundoplication Nurse practitioner note has been reviewed by physician. Signing provider agrees with the documented findings, assessment, and plan of care. Plan - Discharge Summary Discharge Rx Participant: No New Discharge Prescriptions: New Docusate [Colace] 100 mg PO BID #30 capsule HYDROcodone/APAP 7.5-325MG [[place] 7.5-325] 1 tab PO Q4H PRN 3 Days #18 tab PRN Reason: Pain HYDROcodone/APAP 7.5-325MG [[place] 7.5-325] 1 tab PO Q4H PRN 3 Days #18 tab PRN Reason: Pain No Action Omeprazole Magnesium [Prilosec Otc] 20 mg PO BID ALPRAZolam [Xanax] 0.25 mg PO DAILY PRN PRN Reason: Anxiety Fluticasone Propionate [Flovent Hfa 220 mcg] 2 puff INHALATION RT-BID Ergocalciferol [Vitamin D2] 50,000 unit PO SUWE Atenolol [Tenormin] 50 mg PO QAM Albuterol Nebulized [Ventolin Nebulized] 2.5 mg INHALATION RT-Q6H PRN PRN Reason: Shortness Of Breath PARoxetine [Paxil] 20 mg PO QAM Oxybutynin Chloride 5 mg PO BID Lisinopril [Zestril] 20 mg PO QAM HYDROcodone/APAP 5-325MG [[place] 5-325] 1 tab PO Q6HR PRN #10 tab PRN Reason: Pain Ibuprofen 600 mg PO TID PRN PRN Reason: Pain Ondansetron [Zofran ODT] 4 mg PO Q8HR PRN PRN Reason: Nausea Discharge Medication List ALPRAZolam [Xanax] 0.25 mg PO DAILY PRN 10/26/16 [History] Omeprazole Magnesium [Prilosec Otc] 20 mg PO BID 10/26/16 [History] Albuterol Nebulized [Ventolin Nebulized] 2.5 mg INHALATION RT-Q6H PRN 05/18/18 [ History] Atenolol [Tenormin] 50 mg PO QAM 05/18/18 [History] Ergocalciferol [Vitamin D2] 50,000 unit PO SUWE 05/18/18 [History] Fluticasone Propionate [Flovent Hfa 220 mcg] 2 puff INHALATION RT-BID 05/18/18 [ History] Lisinopril [Zestril] 20 mg PO QAM 05/18/18 [History] Oxybutynin Chloride 5 mg PO BID 05/18/18 [History] PARoxetine [Paxil] 20 mg PO QAM 05/18/18 [History] HYDROcodone/APAP 5-325MG [[place] 5-325] 1 tab PO Q6HR PRN #10 tab 05/19/18 [Rx] Ibuprofen 600 mg PO TID PRN 06/16/18 [History] Ondansetron [Zofran ODT] 4 mg PO Q8HR PRN 06/16/18 [History] Docusate [Colace] 100 mg PO BID #30 capsule 06/20/18 [Rx] HYDROcodone/APAP 7.5-325MG [[place] 7.5-325] 1 tab PO Q4H PRN 3 Days #18 tab 06/20 [Rx] HYDROcodone/APAP 7.5-325MG [[place] 7.5-325] 1 tab PO Q4H PRN 3 Days #18 tab 06/20 [Rx] Follow up Appointment(s)/Referral(s): Erasto Shaw MD [STAFF PHYSICIAN] - 07/04/18 2:30 pm Patient Instructions/Handouts: *Surgery [facility] - Scopalamine Patch Instructions Activity/Diet/Wound Care/Special Instructions: No driving while taking [place] No lifting over 10 pounds You may shower. No soaking or tub baths Very light activity until you are reevaluated at your follow up appointment with your surgeon
== END 2018-06-20 15:51 | disposition home or self-care (01) ==
LOC: OR 07:45 → 6PED 10:19 → OR 06-20 01:58
PROVIDERS: ADMIT Surgery; ATTEND Surgery
DX: K44.9 Diaphragmatic hernia without obstruction or gangrene (principal); K21.0 Gastro-esophageal reflux disease with esophagitis; I10 Essential (primary) hypertension; F32.9 Major depressive disorder, single episode, unspecified; Z98.890 Other specified postprocedural states; Z87.448 Personal history of other diseases of urinary system; Z86.718 Personal history of other venous thrombosis and embolism; J45.909 Unspecified asthma, uncomplicated; Z79.51 Long term (current) use of inhaled steroids; Z79.899 Other long term (current) drug therapy; Z88.2 Allergy status to sulfonamides; Z88.8 Allergy status to other drugs, medicaments and biological substances
CPT/HCPCS: 43280; 94640 ×2; 81025; 86900; 86901; 86850; 74210; G0378; J2250; J1644; J2710; J0690; J2405 ×2; J2001; J3010; J1885; J0330; J2704; J1170; Q9967

== ENCOUNTER → 2018-09-25 | Outpatient (CLI) | payer OTHER ==
--- NOTE | 2018-09-25 10:08 | US ---
EXAMINATION TYPE: US pelvis complete transvag DATE OF EXAM: 09/25/2018 COMPARISON: None CLINICAL HISTORY: 48-year-old female R10.11 Right Upper Quad Pain. TECHNIQUE: Transvaginal (TV) and Transabdominal (TA) . Transabdominal sonographic images of the pel vis were acquired. Transvaginal sonographic images were medically necessary to better assess the fol lowing anatomy: ovaries, endometrium Date of LMP: 09-15-18 FINDINGS: EXAM MEASUREMENTS: Uterus: 11.0 x 5.1 x 6.4 cm Endometrial Stripe: 1.2 cm Right Ovary: obscured by bowel gas and obesity Left Ovary: obscured by bowel gas and obesity PLASTIC CNC MACHINE OPERATOR NOTES: Obese patient. 1. Uterus: Cervical nabothian cysts. Fibroid uterus, 1.) 3.3 x 3.1 x 2.8cm, 2.) 2.0 x 1.5 x 1.7. sub mucosal components are difficult to exclude. 2. Endometrium: difficult to visualize due to fibroids 3. Right Ovary: obscured by bowel gas and obesity 4. Left Ovary: obscured by bowel gas and obesity 5. Bilateral Adnexa: wnl 6. Posterior cul-de-sac: wnl IMPRESSION: 1. Fibroid uterus. Largest fibroid measures 3.3 cm. Submucosal components are difficult to exclude. I f fibroid mapping is desired, female pelvic MRI can be performed. 2. Ovaries could not be visualized.
--- NOTE | 2018-09-25 10:12 | US ---
EXAMINATION TYPE: US abdomen complete DATE OF EXAM: 09/25/2018 COMPARISON: 05/18/2018 CLINICAL HISTORY: 48-year-old female R10.11 Right Upper Quad Pain. TECHNIQUE: Multiple sonographic images of the abdomen are obtained. FINDINGS: EXAM MEASUREMENTS: Liver Length: 15.2 cm Gallbladder Wall: 0.3 cm CBD: 0.3 cm Spleen: 11.4 cm Right Kidney: 12.9 x 5.3 x 5.0 cm Left Kidney: 12.8 x 6.2 x 5.6 cm DISTRIBUTION DRIVER NOTES: Patient of large body habitus with extensive overlying bowel gas. Pancreas: Obscured by bowel gas Liver: No focal lesion. Relatively homogeneous echotexture. Gallbladder: wnl Evidence for sonographic Drew's sign: no CBD: wnl Spleen: wnl Right Kidney: Mild pelviectasis. No lidia calyceal dilatation to suggest hydronephrosis. Left Kidney: No hydronephrosis. Upper IVC: wnl Abd Aorta: some portions obscured by overlying bowel gas, portions visualizes wnl IMPRESSION: 1. Mild right-sided pelviectasis may be transient. No calyceal dilatation to suggest hydronephrosis. Short interval follow-up can be considered. 2. Suboptimal visualization of the pancreas. No other specific abnormality seen within the pelvis.
== END | disposition home or self-care (01) ==
LOC: RADUSWWP 06:56
PROVIDERS: ATTEND Internal Medicine
DX: D25.9 Leiomyoma of uterus, unspecified (principal); N13.30 Unspecified hydronephrosis
CPT/HCPCS: 76700; 76830; 76856

== ENCOUNTER 2020-02-15 17:19 | Emergency (ER) | payer OTHER ==
[2020-02-15 17:31] VITALS: RESP 18; TEMP 98.2
[2020-02-15] MEDS ORDERED: ACETAMINOPHEN TAB 325 MG TAB PO STA (17:50)
--- NOTE | 2020-02-15 18:02 | ED ---
General Adult HPI - General Chief complaint: Fall Stated complaint: IHS-fall Time Seen by Provider: 02/15/20 17:34 Source: patient, RN notes reviewed Mode of arrival: ambulatory Limitations: no limitations - History of Present Illness Initial comments: 49-year-old female presents to the emergency room for a chief complaint of fall. Patient had a trip and fall occur earlier at work. She states she was walking and did not see a pallet. Patient fell on her right shoulder right elbow and right knee. She did have some pain in her thumb however this improved. Patient states it is painful to bend her elbow and knee. She had surgery on her shoulder in April and states that is now painful 2. Patient did not hit her head.Patient has no other complaints at this time including shortness of breath, chest pain, abdominal pain, nausea or vomiting, headache, or visual changes. - Related Data Home Medications Medication Instructions Recorded Confirmed ALPRAZolam [Xanax] 0.25 mg PO DAILY PRN 10/26/16 06/20/18 Omeprazole Magnesium [Prilosec Otc] 20 mg PO BID 10/26/16 06/20/18 Albuterol Nebulized [Ventolin 2.5 mg INHALATION RT-Q6H PRN 05/18/18 06/20/18 Nebulized] Ergocalciferol [Vitamin D2] 50,000 unit PO SUWE 05/18/18 06/20/18 Fluticasone Propionate [Flovent 2 puff INHALATION RT-BID 05/18/18 06/20/18 Hfa 220 mcg] Oxybutynin Chloride 5 mg PO BID 05/18/18 06/20/18 PARoxetine [Paxil] 20 mg PO QAM 05/18/18 06/20/18 atenoloL [Tenormin] 50 mg PO QAM 05/18/18 06/20/18 lisinopriL [Zestril] 20 mg PO QAM 05/18/18 06/20/18 Ibuprofen 600 mg PO TID PRN 06/16/18 06/20/18 Ondansetron [Zofran ODT] 4 mg PO Q8HR PRN 06/16/18 06/20/18 Previous Rx's Medication Instructions Recorded HYDROcodone/APAP 5-325MG [[place] 1 tab PO Q6HR PRN #10 tab 05/19/18 5-325] Docusate [Colace] 100 mg PO BID #30 capsule 06/20/18 HYDROcodone/APAP 7.5-325MG [[place] 1 tab PO Q4H PRN 3 Days #18 tab 06/20/18 7.5-325] HYDROcodone/APAP 7.5-325MG [[place] 1 tab PO Q4H PRN 3 Days #18 tab 06/20/18 7.5-325] Allergies Allergy/AdvReac Type Severity Reaction Status Date / Time sulfamethoxazole Allergy Rash/Hives Verified 02/15/20 17:26 [From Bactrim] trimethoprim [From Bactrim] Allergy Rash/Hives Verified 02/15/20 17:26 Corticosteroids AdvReac skin Verified 02/15/20 17:26 (Glucocorticoids) flushing and swelling sertraline HCl [From Zoloft] AdvReac Nausea & Verified 02/15/20 17:26 Vomiting & Diarrhea Review of Systems ROS Statement: Those systems with pertinent positive or pertinent negative responses have been documented in the HPI. ROS Other: All systems not noted in ROS Statement are negative. Past Medical History Past Medical History: Hypertension Additional Past Medical History / Comment(s): SUPERICIAL BLOOD CLOT, DID REQUIRE HEPARIN. INFLAMMATION OF RIGHT KIDNEY. cold sore. History of Any Multi-Drug Resistant Organisms: None Reported Past Surgical History: Appendectomy, Orthopedic Surgery, Tubal Ligation, Uterine Ablation Additional Past Surgical History / Comment(s): 06/06/18 EGD. DURING APPENDECTOMY, IT WAS NOTED IT WAS "PULLING ON KIDNEY" AND BLOCKING DRAINAGE. Bladder lift. R rotator cuff Past Anesthesia/Blood Transfusion Reactions: Postoperative Nausea & Vomiting (PONV) Additional Past Anesthesia/Blood Transfusion Reaction / Comment(s): no hx blood transfusion,vertigo Past Psychological History: Depression Smoking Status: Never smoker Past Alcohol Use History: None Reported Past Drug Use History: None Reported - Past Family History Mother Family Medical History: No Reported History Father Family Medical History: Deep Vein Thrombosis (DVT) General Exam - General Exam Comments Initial Comments: Patient has about 90 flexion and abduction of the right shoulder. She has 90 flexion of the right elbow, full extension. Full range motion of the right hand and wrist. Tenderness noted to the shoulder and elbow. She has no tenderness in her hand or wrist. No scaphoid tenderness. Radial pulse 2+. Capillary refill less than 2 seconds. Right knee is mildly edematous. No erythema or increased warmth. Tenderness to the anterior aspect of the right knee. Patient is able to ambulate on the right knee. DP pulses 2+ in the right lower extremity. No lacerations or abrasions. Limitations: no limitations General appearance: alert, in no apparent distress Head exam: Present: atraumatic, normocephalic, normal inspection Eye exam: Present: normal appearance, PERRL, EOMI. Absent: scleral icterus, conjunctival injection, periorbital swelling ENT exam: Present: normal exam, mucous membranes moist Neck exam: Present: normal inspection, full ROM. Absent: tenderness, meningismus, lymphadenopathy Respiratory exam: Present: normal lung sounds bilaterally. Absent: respiratory distress, wheezes, rales, rhonchi, stridor Cardiovascular Exam: Present: regular rate, normal rhythm, normal heart sounds. Absent: systolic murmur, diastolic murmur, rubs, gallop, clicks GI/Abdominal exam: Present: soft, normal bowel sounds. Absent: distended, tenderness, guarding, rebound, rigid Back exam: Absent: vertebral tenderness Neurological exam: Present: alert Course Vital Signs 02/15/20 17:26 Temperature 98.2 F Pulse Rate 62 Respiratory 18 Rate Blood Pressure 119/68 O2 Sat by Pulse 99 Oximetry Medical Decision Making - Medical Decision Making X-ray of the right shoulder is negative for fracture. X-ray of the right knee shows mild osteoarthritis in the medial joint space. No fracture. X-ray of the right elbow shows no acute abnormality. At this time patient can be discharged home. She will follow up with her orthopedic surgeon given shoulder pain. She will return here for any worsening symptoms. Disposition Clinical Impression: Fall, Shoulder pain, right, Elbow pain, Knee pain Disposition: HOME SELF-CARE Condition: Good Instructions (If sedation given, give patient instructions): Knee Pain (ED), Shoulder Pain (ED) Additional Instructions: Please take Tylenol for pain. Please follow-up with your orthopedic surgeon next week. If you have any worsening symptoms in the meantime return to the emergency room. Is patient prescribed a controlled substance at d/c from ED?: No Referrals: Escobar Irizarry MD [Primary Care Provider] - 1-2 days Time of Disposition: 18:53
--- NOTE | 2020-02-15 18:10 | XR ---
EXAMINATION TYPE: XR shoulder complete RT DATE OF EXAM: 02/15/2020 COMPARISON: NONE HISTORY: Pain TECHNIQUE: 3 views FINDINGS: I see no fracture nor dislocation. Glenohumeral joint is intact. There are no pathologic ca lcifications. Scapula is intact. IMPRESSION: Negative right shoulder exam. No fracture seen.
--- NOTE | 2020-02-15 18:13 | XR ---
EXAMINATION TYPE: XR knee complete RT DATE OF EXAM: 02/15/2020 COMPARISON: NONE HISTORY: Pain. Fall. TECHNIQUE: 3 views FINDINGS: There is minor spurring of the medial femoral and tibial condyles. I see no fracture nor di slocation. There is no sign of joint effusion. IMPRESSION: Mild osteoarthritis in the medial joint space. No fracture.
--- NOTE | 2020-02-15 18:44 | XR ---
EXAMINATION TYPE: XR elbow complete RT DATE OF EXAM: 02/15/2020 COMPARISON: NONE HISTORY: Pain TECHNIQUE: 3 views FINDINGS: There is no evidence of fracture nor dislocation. Joint spaces are normal. There is no sign of joint effusion. There is some spurring at the lateral humeral condyle consistent with old injury. IMPRESSION: No acute abnormality of the right elbow.
[2020-02-15 19:24] VITALS: BP 121/85; PULSE 65
== END 2020-02-15 19:24 | disposition home or self-care (01) ==
LOC: EC 17:19
DX: M17.11 Unilateral primary osteoarthritis, right knee (principal); M25.511 Pain in right shoulder; M25.521 Pain in right elbow; F32.9 Major depressive disorder, single episode, unspecified; I10 Essential (primary) hypertension; Z79.899 Other long term (current) drug therapy; Z88.2 Allergy status to sulfonamides; Z88.8 Allergy status to other drugs, medicaments and biological substances; W01.0XXA Fall on same level from slipping, tripping and stumbling without subsequent striking against object, initial encounter; Y93.01 Activity, walking, marching and hiking; Y92.69 Other specified industrial and construction area as the place of occurrence of the external cause; Y99.0 Civilian activity done for income or pay
CPT/HCPCS: 99283

== ENCOUNTER → 2020-02-18 | Outpatient (CLI) | payer OTHER ==
--- NOTE | 2020-02-18 17:19 | XR ---
Right humerus HISTORY: Pain from trauma 3 days prior Frontal and lateral views of the right humerus submitted on 3 images, correlation to right elbow 02/14 Bone mineralization, joint spaces and alignment are maintained. IMPRESSION: No fracture or dislocation.
== END | disposition home or self-care (01) ==
LOC: RADXRMAIN 16:44
PROVIDERS: ATTEND Emergency Medicine
DX: S40.021A Contusion of right upper arm, initial encounter (principal)

== ENCOUNTER 2022-04-21 00:42 | Emergency (ER) | payer BC, OTHER ==
[2022-04-21 00:47] VITALS: RESP 18; TEMP 98.1
--- NOTE | 2022-04-21 00:55 | ED ---
Chest Pain HPI - General Chief Complaint: Chest Pain Stated Complaint: Chest Pain Time Seen by Provider: 04/21/22 00:54 Source: patient, EMS, RN notes reviewed, old records reviewed Mode of arrival: EMS - History of Present Illness Initial Comments: This is a 51-year-old female to the emergency department DF for evaluation patient Dese for evaluation regards to bodyaches and pains chest pain chest pain and abdominal pain abdominal pain cramping. Severe anxiety prior to arrival. Symptoms started at work she presents from work. No recent fever cough or congestion no no travel history or sick contacts patient does have family history of heart disease as well as high blood pressure MD Complaint: chest pain -: hour(s) Onset: during rest, during exertion Pain Location: substernal, epigastric Severity: mild Severity scale (1-10): 3 Quality: tightness Consistency: intermittent Worsens With: nothing Anginal Symptoms: sense of impending doom Other Symptoms: palpitations Treatments Prior to Arrival: none - Related Data Home Medications Medication Instructions Recorded Confirmed ALPRAZolam [Xanax] 0.25 mg PO DAILY PRN 10/26/16 06/20/18 Omeprazole Magnesium [Prilosec Otc] 20 mg PO BID 10/26/16 06/20/18 Albuterol Nebulized [Ventolin 2.5 mg INHALATION RT-Q6H PRN 05/18/18 06/20/18 Nebulized] Ergocalciferol [Vitamin D2] 50,000 unit PO SUWE 05/18/18 06/20/18 Fluticasone Propionate [Flovent 2 puff INHALATION RT-BID 05/18/18 06/20/18 Hfa 220 mcg] Oxybutynin Chloride 5 mg PO BID 05/18/18 06/20/18 PARoxetine [Paxil] 20 mg PO QAM 05/18/18 06/20/18 atenoloL [Tenormin] 50 mg PO QAM 05/18/18 06/20/18 lisinopriL [Zestril] 20 mg PO QAM 05/18/18 06/20/18 Ibuprofen 600 mg PO TID PRN 06/16/18 06/20/18 Ondansetron [Zofran ODT] 4 mg PO Q8HR PRN 06/16/18 06/20/18 Previous Rx's Medication Instructions Recorded HYDROcodone/APAP 5-325MG [[place] 1 tab PO Q6HR PRN #10 tab 05/19/18 5-325] Docusate [Colace] 100 mg PO BID #30 capsule 06/20/18 HYDROcodone/APAP 7.5-325MG [[place] 1 tab PO Q4H PRN 3 Days #18 tab 06/20/18 7.5-325] HYDROcodone/APAP 7.5-325MG [[place] 1 tab PO Q4H PRN 3 Days #18 tab 06/20/18 7.5-325] Allergies Allergy/AdvReac Type Severity Reaction Status Date / Time sulfamethoxazole Allergy Rash/Hives Verified 02/15/20 17:26 [From Bactrim] trimethoprim [From Bactrim] Allergy Rash/Hives Verified 02/15/20 17:26 Corticosteroids AdvReac skin Verified 02/15/20 17:26 (Glucocorticoids) flushing and swelling sertraline HCl [From Zoloft] AdvReac Nausea & Verified 02/15/20 17:26 Vomiting & Diarrhea Review of Systems ROS Statement: Those systems with pertinent positive or pertinent negative responses have been documented in the HPI. ROS Other: All systems not noted in ROS Statement are negative. EKG Findings - EKG Comments: EKG Findings:: EKG is sinus 64 CO 145 QRS 124 QTc 448 Past Medical History Past Medical History: Hypertension Additional Past Medical History / Comment(s): SUPERICIAL BLOOD CLOT, DID REQUIRE HEPARIN. INFLAMMATION OF RIGHT KIDNEY. cold sore. History of Any Multi-Drug Resistant Organisms: None Reported Past Surgical History: Appendectomy, Orthopedic Surgery, Tubal Ligation, Uterine Ablation Additional Past Surgical History / Comment(s): 06/06/18 EGD. DURING APPENDECTOMY, IT WAS NOTED IT WAS "PULLING ON KIDNEY" AND BLOCKING DRAINAGE. Bladder lift. R rotator cuff Past Anesthesia/Blood Transfusion Reactions: Postoperative Nausea & Vomiting (PONV) Additional Past Anesthesia/Blood Transfusion Reaction / Comment(s): no hx blood transfusion,vertigo Past Psychological History: Depression Smoking Status: Never smoker Past Alcohol Use History: None Reported Past Drug Use History: None Reported - Past Family History Mother Family Medical History: No Reported History Father Family Medical History: Deep Vein Thrombosis (DVT) General Exam General appearance: alert, in no apparent distress Head exam: Present: atraumatic, normocephalic, normal inspection Eye exam: Present: normal appearance, PERRL, EOMI. Absent: scleral icterus, conjunctival injection, periorbital swelling ENT exam: Present: normal exam, mucous membranes moist Neck exam: Present: normal inspection. Absent: tenderness, meningismus, lymphadenopathy Respiratory exam: Present: normal lung sounds bilaterally. Absent: respiratory distress, wheezes, rales, rhonchi, stridor Cardiovascular Exam: Present: regular rate, normal rhythm, normal heart sounds. Absent: systolic murmur, diastolic murmur, rubs, gallop, clicks GI/Abdominal exam: Present: soft, normal bowel sounds. Absent: distended, tenderness, guarding, rebound, rigid Extremities exam: Present: normal inspection, full ROM, normal capillary refill. Absent: tenderness, pedal edema, joint swelling, calf tenderness Back exam: Present: normal inspection Neurological exam: Present: alert, oriented X3, CN II-XII intact Psychiatric exam: Present: normal affect, normal mood Skin exam: Present: warm, dry, intact, normal color. Absent: rash Course Vital Signs 04/21/22 00:44 Temperature 98.1 F Pulse Rate 64 Respiratory 18 Rate Blood Pressure 132/80 O2 Sat by Pulse 99 Oximetry - Reevaluation(s) Reevaluation #1: 04/21/22 01:27 Medical records reviewed Reevaluation #2: 04/21/22 03:32 Patient symptoms improved improving here in the ER Reevaluation #3: 04/21/22 03:33 Patient informed results and questions are answered Chest Pain MDM - MDM 51 female to the emergency department for evaluation patient presents today for evaluation regards to bodyaches pains tingling cramping. All symptoms resolved major like her abdomen male was which I replaced she's been struggling with this for a while can be discharged home Disposition Clinical Impression: Atypical chest pain, Hypokalemia, Hypocalcemia Disposition: HOME SELF-CARE Condition: Good Instructions (If sedation given, give patient instructions): Hypocalcemia (ED), [place] Spasm (ED), Hypokalemia (ED) Is patient prescribed a controlled substance at d/c from ED?: No Referrals: Escobar Irizarry MD [Primary Care Provider] - 1-2 days Jovan Diaz DO [STAFF PHYSICIAN] - 1-2 days Time of Disposition: 03:30
[2022-04-21 01:34] LABS: Basophils # (A) 0.1 k/uL (0-0.2); Basophils % (A) 1 %; Eosinophils # (A) 0.2 k/uL (0-0.7); Eosinophils % (A) 2 %; HCT 38.8 % (34.0-46.0); HGB 13.3 gm/dL (11.4-16.0); Lymphocytes # (A) 1.9 k/uL (1.0-4.8); Lymphocytes % (A) 13 %; MCH 28.5 pg (25.0-35.0); MCHC 34.4 g/dL (31.0-37.0); MCV 82.9 fL (80.0-100.0); Monocytes # (A) 0.5 k/uL (0-1.0); Monocytes % (A) 4 %; Neutrophils # (A) 11.8 k/uL (1.3-7.7); Neutrophils % (A) 80 %; Platelet Count 296 k/uL (150-450); RBC 4.67 m/uL (3.80-5.40); RDW 13.4 % (11.5-15.5); WBC 14.7 k/uL (3.8-10.6)
--- NOTE | 2022-04-21 01:40 | XR ---
EXAMINATION TYPE: XR chest 2V DATE OF EXAM: 04/21/2022 COMPARISON: NONE HISTORY: Chest pain TECHNIQUE: 2 views FINDINGS: There is no heart failure nor confluent pneumonic infiltrate. Costophrenic angles are clear . There are no hilar masses. There are chest leads. IMPRESSION: No active cardiopulmonary disease. Normal heart.
[2022-04-21 01:46] LABS: ALT 16 U/L (4-34); AST 31 U/L (14-36); African American GFR (CKD) >90 (>60 ml/min/1.73 sqM); Albumin 4.2 g/dL (3.5-5.0); Alkaline Phosphatase 79 U/L (38-126); Anion Gap 10 mmol/L; Blood Urea Nitrogen 11 mg/dL (7-17); Calcium 7.2 mg/dL (8.4-10.2); Carbon Dioxide 25 mmol/L (22-30); Chloride 101 mmol/L (98-107); Glucose 93 mg/dL (74-99); Lipase 49 U/L (23-300); Magnesium 1.5 mg/dL (1.6-2.3); Non-African American GFR(CKD) >90 (>60 ml/min/1.73 sqM); Sodium 136 mmol/L (137-145); Total Bilirubin 0.6 mg/dL (0.2-1.3); Total Protein 7.7 g/dL (6.3-8.2)
[2022-04-21 01:54] LABS: Potassium 4.1 mmol/L (3.5-5.1)
[2022-04-21 02:54] LABS: Prothrombin Time 10.4 sec (9.0-12.0)
[2022-04-21 03:17] LABS: Partial Thromboplastin Time 19.7 sec (22.0-30.0)
[2022-04-21] MEDS ORDERED: CALCIUM CHLORIDE 100 MG/ML 10 ML SYRINGE IVP STA (03:20)
[2022-04-21] MEDS ORDERED: MAGNESIUM OXIDE 400 MG TAB PO STA ×2 (03:20)
[2022-04-21] MEDS ORDERED: CALCIUM GLUCONATE IN NACL 2 GM in SALINE 1 100ML.BAG IVPB ONE (03:30)
[2022-04-21] MEDS ORDERED: CALCIUM CARB-MAG CARB-FOLIC 1 EACH TAB PO ONE (03:30)
[2022-04-21] MEDS: MAGNESIUM SULFATE-D5W PMX 1 GM in DEXTROSE/WATER 1 100ML.BAG IVPB SCH ×2 (03:34→04:23)
[2022-04-21 05:01] VITALS: BP 128/85; PULSE 68
== END 2022-04-21 05:34 | disposition home or self-care (01) ==
LOC: EC 00:42
DX: R07.89 Other chest pain (principal); I10 Essential (primary) hypertension; E87.6 Hypokalemia; E83.51 Hypocalcemia; F32.A Depression, unspecified; Z79.899 Other long term (current) drug therapy; Z88.2 Allergy status to sulfonamides; Z88.8 Allergy status to other drugs, medicaments and biological substances; Z88.1 Allergy status to other antibiotic agents
CPT/HCPCS: 36415; 93005; 83880; 80053; 83690; 83735; 84484; 85025; 85610; 85730; 83970; 71046; 99285; 96365; 96366; 96375; J3475; J0610; 96368; 96376

== ENCOUNTER 2022-05-18 20:52 | Inpatient (IN) | payer BC ==
--- NOTE | 2022-05-19 00:28 | ED ---
General Adult HPI <MarinaSesar B - Last Filed: 05/19/22 00:58> - General Source: patient, EMS, RN notes reviewed Mode of arrival: EMS Limitations: no limitations <Latanya De Leon - Last Filed: 05/19/22 04:52> - General Chief complaint: Syncope Stated complaint: Near syncope Time Seen by Provider: 05/19/22 00:02 - History of Present Illness Initial comments: 51-year-old female presents to the emergency Department with complaints of cramping discomfort across her abdomen and back, as well as spasms in her arms and leg. Reports paresthesias in her hands. Complains of restlessness. States she has a history of low magnesium and low calcium. Has not followed up with her PCP in regards to this issue but was here 5-6 weeks ago and received IV infusions in ED. Has been taking a calcium supplement daily since. Reports chronic diarrhea. States she became dizzy and lightheaded with a significant episode of cramping earlier today. Denies fever, chills, chest pain, palpitations, shortness of breath, vomiting, dysuria, or hematuria. (Latanya De Leon) - Related Data Home Medications Medication Instructions Recorded Confirmed ALPRAZolam [Xanax] 0.25 mg PO DAILY PRN 10/26/16 06/20/18 Omeprazole Magnesium [Prilosec Otc] 20 mg PO BID 10/26/16 06/20/18 Albuterol Nebulized [Ventolin 2.5 mg INHALATION RT-Q6H PRN 05/18/18 06/20/18 Nebulized] Ergocalciferol [Vitamin D2] 50,000 unit PO SUWE 05/18/18 06/20/18 Fluticasone Propionate [Flovent 2 puff INHALATION RT-BID 05/18/18 06/20/18 Hfa 220 mcg] Oxybutynin Chloride 5 mg PO BID 05/18/18 06/20/18 PARoxetine [Paxil] 20 mg PO QAM 05/18/18 06/20/18 atenoloL [Tenormin] 50 mg PO QAM 05/18/18 06/20/18 lisinopriL [Zestril] 20 mg PO QAM 05/18/18 06/20/18 Ibuprofen 600 mg PO TID PRN 06/16/18 06/20/18 Ondansetron [Zofran ODT] 4 mg PO Q8HR PRN 06/16/18 06/20/18 Previous Rx's Medication Instructions Recorded HYDROcodone/APAP 5-325MG [[place] 1 tab PO Q6HR PRN #10 tab 05/19/18 5-325] Docusate [Colace] 100 mg PO BID #30 capsule 06/20/18 HYDROcodone/APAP 7.5-325MG [[place] 1 tab PO Q4H PRN 3 Days #18 tab 06/20/18 7.5-325] HYDROcodone/APAP 7.5-325MG [[place] 1 tab PO Q4H PRN 3 Days #18 tab 06/20/18 7.5-325] Allergies Allergy/AdvReac Type Severity Reaction Status Date / Time lisinopril Allergy Anaphylaxis Verified 05/18/22 21:19 sulfamethoxazole Allergy Rash/Hives Verified 05/18/22 21:19 [From Bactrim] trimethoprim [From Bactrim] Allergy Rash/Hives Verified 05/18/22 21:19 Corticosteroids AdvReac skin Verified 05/18/22 21:19 (Glucocorticoids) flushing and swelling sertraline HCl [From Zoloft] AdvReac Nausea & Verified 05/18/22 21:19 Vomiting & Diarrhea Review of Systems ROS Other: All systems not noted in ROS Statement are negative. <Sesar Gray - Last Filed: 05/19/22 00:58> ROS Other: All systems not noted in ROS Statement are negative. <Latanya De Leon - Last Filed: 05/19/22 04:52> ROS Statement: Those systems with pertinent positive or pertinent negative responses have been documented in the HPI. Past Medical History Past Medical History: Hypertension Additional Past Medical History / Comment(s): SUPERICIAL BLOOD CLOT, DID REQUIRE HEPARIN. INFLAMMATION OF RIGHT KIDNEY. cold sore. History of Any Multi-Drug Resistant Organisms: None Reported Past Surgical History: Appendectomy, Orthopedic Surgery, Tubal Ligation, Uterine Ablation Additional Past Surgical History / Comment(s): 06/06/18 EGD. DURING APPENDECTOMY, IT WAS NOTED IT WAS "PULLING ON KIDNEY" AND BLOCKING DRAINAGE. Bladder lift. R rotator cuff Past Anesthesia/Blood Transfusion Reactions: Postoperative Nausea & Vomiting (PONV) Additional Past Anesthesia/Blood Transfusion Reaction / Comment(s): no hx blood transfusion,vertigo Past Psychological History: Depression Smoking Status: Never smoker Past Alcohol Use History: None Reported Past Drug Use History: None Reported - Past Family History Mother Family Medical History: No Reported History Father Family Medical History: Deep Vein Thrombosis (DVT) <Latanya De Leon - Last Filed: 05/19/22 04:52> General Exam Limitations: no limitations General appearance: alert, in no apparent distress, other (Patient is ambulatory and room. She is not ill in appearance, though is somewhat anxious.) ENT exam: Present: normal exam, normal oropharynx, mucous membranes moist Expanded Mouth exam: Present: other (negative [place]) Respiratory exam: Present: normal lung sounds bilaterally. Absent: respiratory distress, wheezes, rales, rhonchi, stridor Cardiovascular Exam: Present: regular rate, normal rhythm, normal heart sounds. Absent: systolic murmur, diastolic murmur, rubs, gallop, clicks GI/Abdominal exam: Present: soft, normal bowel sounds. Absent: distended, ten derness, guarding, rebound, rigid Extremities exam: Present: normal inspection, full ROM, other (negative trousseau sign). Absent: pedal edema Neurological exam: Present: alert, oriented X3, CN II-XII intact Psychiatric exam: Present: anxious Skin exam: Present: warm, dry, intact <Latanya De Leon - Last Filed: 05/19/22 04:52> Course <Latanya De Leon - Last Filed: 05/19/22 04:52> Vital Signs 05/18/22 05/19/22 21:15 03:00 Temperature 98.2 F Pulse Rate 65 80 Respiratory 18 16 Rate Blood Pressure 131/89 169/69 O2 Sat by Pulse 96 97 Oximetry - Reevaluation(s) Reevaluation #1: 05/19/22 02:30 This patient's care was discussed with my attending. Hospital admission was recommended. Patient was uncertain about this and wished to speak to her further. Explained that given the recurrence of hypocalcemia, despite treatment within short amount of time merited further evaluation. 05/19/22 04:30 Patient is agreeable with admission plan of care. Spoke with [place], DIE CUTTER who agrees to accept this admission. (Latanya De Leon) EKG Findings - EKG Comments: EKG Findings:: EKG interpreted by me shows sinus rhythm 62 NH 136 QRS 110 QTc 499 <Sesar Gray - Last Filed: 05/19/22 00:58> Medical Decision Making - Lab Data Result diagrams: 05/19/22 00:40 05/19/22 00:40 <Latanya De Leon - Last Filed: 05/19/22 04:52> - Lab Data Lab Results 05/19/22 05/19/22 05/19/22 Range/Units 00:40 00:40 00:40 WBC 15.2 H (3.8-10.6) k/uL RBC 4.88 (3.80-5.40) m/uL Hgb 13.9 (11.4-16.0) gm/dL Hct 41.1 (34.0-46.0) % MCV 84.1 (80.0-100.0) fL MCH 28.5 (25.0-35.0) pg MCHC 33.9 (31.0-37.0) g/dL RDW 13.4 (11.5-15.5) % Plt Count 298 (150-450) k/uL MPV 8.3 Neutrophils % 81 % Lymphocytes % 13 % Monocytes % 4 % Eosinophils % 1 % Basophils % 1 % Neutrophils # 12.3 H (1.3-7.7) k/uL Lymphocytes # 2.0 (1.0-4.8) k/uL Monocytes # 0.6 (0-1.0) k/uL Eosinophils # 0.1 (0-0.7) k/uL Basophils # 0.1 (0-0.2) k/uL Sodium 138 (137-145) mmol/L Potassium 3.8 (3.5-5.1) mmol/L Chloride 101 (98-107) mmol/L Carbon Dioxide 28 (22-30) mmol/L Anion Gap 9 mmol/L BUN 14 (7-17) mg/dL Creatinine 0.63 (0.52-1.04) mg/dL Est GFR (CKD-EPI)AfAm >90 (>60 ml/min/1.73 sqM) Est GFR (CKD-EPI)NonAf >90 (>60 ml/min/1.73 sqM) Glucose 97 (74-99) mg/dL Calcium 6.9 L (8.4-10.2) mg/dL Magnesium 1.6 (1.6-2.3) mg/dL Total Bilirubin 0.2 (0.2-1.3) mg/dL AST 23 (14-36) U/L ALT 17 (4-34) U/L Alkaline Phosphatase 95 (38-126) U/L Troponin I <0.012 (0.000-0.034) ng/mL Total Protein 7.4 (6.3-8.2) g/dL Albumin 4.2 (3.5-5.0) g/dL TSH 3.270 (0.465-4.680) mIU/L Disposition <Sesar Gray - Last Filed: 05/19/22 00:58> Decision Date: 05/19/22 Decision Time: 04:20 <Latanya De Leon - Last Filed: 05/19/22 04:52> Clinical Impression: Hypocalcemia Disposition: ADMITTED IP TO THIS HOSP Condition: Serious Referrals: Escobar Irizarry MD [Primary Care Provider] - 1-2 days
[2022-05-19 01:51] LABS: Basophils # (A) 0.1 k/uL (0-0.2); Basophils % (A) 1 %; Eosinophils # (A) 0.1 k/uL (0-0.7); Eosinophils % (A) 1 %; HCT 41.1 % (34.0-46.0); HGB 13.9 gm/dL (11.4-16.0); Lymphocytes % (A) 13 %; MCH 28.5 pg (25.0-35.0); MCHC 33.9 g/dL (31.0-37.0); MCV 84.1 fL (80.0-100.0); Mean Platelet Volume 8.3; Monocytes # (A) 0.6 k/uL (0-1.0); Monocytes % (A) 4 %; Neutrophils # (A) 12.3 k/uL (1.3-7.7); Neutrophils % (A) 81 %; Platelet Count 298 k/uL (150-450); RBC 4.88 m/uL (3.80-5.40); RDW 13.4 % (11.5-15.5); WBC 15.2 k/uL (3.8-10.6)
[2022-05-19 01:53] LABS: ALT 17 U/L (4-34); AST 23 U/L (14-36); African American GFR (CKD) >90 (>60 ml/min/1.73 sqM); Albumin 4.2 g/dL (3.5-5.0); Alkaline Phosphatase 95 U/L (38-126); Anion Gap 9 mmol/L; Blood Urea Nitrogen 14 mg/dL (7-17); Calcium 6.9 mg/dL (8.4-10.2); Carbon Dioxide 28 mmol/L (22-30); Chloride 101 mmol/L (98-107); Glucose 97 mg/dL (74-99); Magnesium 1.6 mg/dL (1.6-2.3); Non-African American GFR(CKD) >90 (>60 ml/min/1.73 sqM); Potassium 3.8 mmol/L (3.5-5.1); Sodium 138 mmol/L (137-145); Total Bilirubin 0.2 mg/dL (0.2-1.3); Total Protein 7.4 g/dL (6.3-8.2)
[2022-05-19] MEDS ORDERED: CALCIUM GLUCONATE IN NACL 2 GM in SALINE 1 100ML.BAG IVPB ONE (02:45)
[2022-05-19] MEDS ORDERED: KETOROLAC 15 MG/ML 1 ML VIAL IVP STA (03:14)
[2022-05-19] MEDS ORDERED: ALPRAZolam 0.25 MG TAB PO PRN (04:52)
[2022-05-19] MEDS ORDERED: NALOXONE 0.4 MG/ML 1 ML VIAL IV PRN (04:52)
[2022-05-19] MEDS ORDERED: ONDANSETRON 4 MG/2 ML VIAL IVP PRN (04:52)
[2022-05-19] MEDS ORDERED: HYDROmorphone 0.5 MG/0.5 ML SYRINGE IVP PRN (06:00)
[2022-05-19] MEDS ORDERED: KETOROLAC 15 MG/ML 1 ML VIAL IVP PRN (06:00)
[2022-05-19] MEDS: ACETAMINOPHEN TAB 325 MG TAB PO PRN (10:41)
[2022-05-19 11:11] LABS: Basophils # (A) 0.1 k/uL (0-0.2); Basophils % (A) 1 %; Eosinophils # (A) 0.5 k/uL (0-0.7); Eosinophils % (A) 4 %; HCT 37.6 % (34.0-46.0); HGB 12.7 gm/dL (11.4-16.0); Lymphocytes # (A) 3.3 k/uL (1.0-4.8); Lymphocytes % (A) 28 %; MCH 28.3 pg (25.0-35.0); MCHC 33.7 g/dL (31.0-37.0); Mean Platelet Volume 8.5; Monocytes # (A) 0.6 k/uL (0-1.0); Monocytes % (A) 5 %; Neutrophils # (A) 7.1 k/uL (1.3-7.7); Neutrophils % (A) 60 %; Platelet Count 269 k/uL (150-450); RBC 4.48 m/uL (3.80-5.40); RDW 13.5 % (11.5-15.5); WBC 11.8 k/uL (3.8-10.6)
[2022-05-19 11:20] LABS: African American GFR (CKD) >90 (>60 ml/min/1.73 sqM); Anion Gap 8 mmol/L; Blood Urea Nitrogen 16 mg/dL (7-17); Calcium 7.1 mg/dL (8.4-10.2); Carbon Dioxide 27 mmol/L (22-30); Chloride 103 mmol/L (98-107); Glucose 100 mg/dL (74-99); Non-African American GFR(CKD) >90 (>60 ml/min/1.73 sqM); Potassium 3.2 mmol/L (3.5-5.1); Sodium 138 mmol/L (137-145)
[2022-05-19] MEDS ORDERED: Potassium Replacement Protocol 1 EACH MISC MISCELLANE PRN (12:23)
[2022-05-19] MEDS ORDERED: Magnesium Replacement Protocol 1 EACH MISC MISCELLANE PRN ×2 (12:23→13:53)
[2022-05-19] MEDS: MAGNESIUM SULFATE-D5W PMX 1 GM in DEXTROSE/WATER 1 100ML.BAG IVPB SCH ×2 (14:27→15:30)
--- NOTE | 2022-05-19 18:09 | HP ---
HISTORY AND PHYSICAL CHIEF COMPLAINT: Near-syncope and hypocalcemia. HISTORY OF PRESENT ILLNESS: This is a 51-year-old woman with a past medical history of hypertension and history of thyroidectomy, being followed by Dr. Irizarry in the outpatient setting, was noted to have cramping discomfort going to the hand and abdomen and back spasms. There is a recurrence of symptoms. The patient came to [facility] and was admitted for further evaluation and treatment. The patient was found to be hypocalcemic and admitted for further evaluation and treatment. The calcium was 7.1, and PTH intact was also found to be low. There is no history of any fever, rigors, or chills at this time. PAST MEDICAL HISTORY: History of thyroidectomy, history of superficial blood clot, and hypertension. Rest of the history and rest of the chart are reviewed. HOME MEDICATIONS: Reviewed include Prilosec. Doses and rest of the medications are noted. ALLERGIES: Reviewed include lisinopril. FAMILY HISTORY: No history of heart disease or strokes in the family. SOCIAL HISTORY: No history of smoking or alcohol. REVIEW OF SYSTEMS: Fourteen-point review is negative except as mentioned earlier. PHYSICAL EXAMINATION: VITAL SIGNS: Pulse is 67, blood pressure 141/76, respirations 18. CHEST: Clear to auscultation. CARDIOVASCULAR: S1 and S2. ABDOMEN: Soft. NERVOUS SYSTEM: No focal deficits. SKIN: No ulcers or rashes. JOINTS: No active deforming arthropathy. LABORATORY DATA: Reviewed. WBC 11.8. Sodium 130, potassium 3.2. ASSESSMENT: 1. Severe hypocalcemia, possibly primary hypoparathyroidism. 2. Hypokalemia. 3. Spasms. 4. Hypertension. 5. Multiple medical issues. RECOMMENDATIONS: This is a 51-year-old woman, who presented with multiple complex medical issues. We will monitor the patient closely. I will supplement calcium. I will order serum phosphorus. Nephrology consultation. Most likely, the patient has primary hypoparathyroidism. Guarded prognosis. Further recommendations to follow. See orders for the details. Resume the home medications. MMODL / IJN: [id number] /
[2022-05-19] MEDS: POTASSIUM CHLORIDE ER 20 MEQ TAB.ER PO SCH (21:00)
[2022-05-20] MEDS: ACETAMINOPHEN TAB 325 MG TAB PO PRN (01:59)
[2022-05-20 09:51] LABS: Basophils # (A) 0.12 X 10*3/uL (0.00-0.10); Basophils % (A) 1.5 %; Eosinophils # (A) 0.38 X 10*3/uL (0.04-0.35); Eosinophils % (A) 4.8 %; HGB 11.8 g/dL (12.0-15.0); Immature Grans, Automated 0.6 %; Lymphocytes # (A) 3.21 X 10*3/uL (0.90-5.00); Lymphocytes % (A) 40.6 %; MCH 27.9 pg (27.0-32.0); MCHC 33.7 g/dL (32.0-37.0); MCV 82.7 fL (80.0-97.0); Mean Platelet Volume 10.9 fL (9.5-12.2); Monocytes # (A) 0.58 X 10*3/uL (0.20-1.00); Monocytes % (A) 7.3 %; NRBC Per 100 WBC 0 /100 WBCS (0.0-0.0); Neutrophils # (A) 3.57 X 10*3/uL (1.80-7.70); Neutrophils % (A) 45.2 %; Platelet Count 265 X 10*3/uL (140-440); RBC 4.23 X 10*6/uL (4.10-5.20); RDW 14.4 % (11.5-14.5); WBC 7.91 X 10*3/uL (4.50-10.00)
[2022-05-20 10:03] LABS: Anion Gap 10.7 mmol/L (10.00-18.00); BUN/Creat Ratio 19.67 Ratio (12.00-20.00); Blood Urea Nitrogen 11.8 mg/dL (9.0-27.0); Calcium 6.9 mg/dL (8.7-10.3); Carbon Dioxide 26.3 mmol/L (20.0-27.5); Magnesium 1.9 mg/dL (1.5-2.4); Potassium 3.8 mmol/L (3.5-5.5)
[2022-05-20] MEDS ORDERED: ALPRAZolam 0.25 MG TAB PO PRN (11:10)
[2022-05-20] MEDS ORDERED: ALBUTEROL HFA INHALER INHALATION PRN (11:10)
[2022-05-20] MEDS ORDERED: POTASSIUM CHLORIDE ER 20 MEQ TAB.ER PO SCH (12:00)
[2022-05-20] MEDS: LEVOTHYROXINE 100 MCG TAB PO SCH (12:13)
[2022-05-20] MEDS: PARoxetine 20 MG TAB PO SCH (12:13)
[2022-05-20] MEDS: MAGNESIUM SULFATE-D5W PMX 1 GM in DEXTROSE/WATER 1 100ML.BAG IVPB SCH ×2 (12:13→13:15)
[2022-05-20] MEDS: atenoloL 25 MG TAB PO SCH (12:13)
[2022-05-20] MEDS: PANTOPRAZOLE 40 MG TABLET PO SCH (12:13)
[2022-05-20] MEDS: OXYBUTYNIN CHLORIDE 5 MG TAB PO SCH ×2 (12:14→22:28)
[2022-05-20] MEDS: LEVOTHYROXINE 75 MCG TAB PO SCH (12:14)
[2022-05-20 13:42] LABS: Appearance,Urine Clear (Clear); Bilirubin,Urine Negative (Negative); Blood,Urine Negative (Negative); Color,Urine Colorless; Glucose,Urine (UA) Negative (Negative); Ketones,Urine Negative (Negative); Leukocyte Esterase,Urine Negative (Negative); Nitrite,Urine Negative (Negative); PH, Urine 5.5 (5.0-8.0); Protein,Urine Negative (Negative); Specific Gravity,Urine 1.002 (1.001-1.035); Urobilinogen,Urine <2.0 mg/dL (<2.0)
--- NOTE | 2022-05-20 14:53 | P.NPCON ---
History of Present Illness - History of Present Illness Patient is a 51-year-old female with history of hypertension. She is admitted to the hospital with complaints of severe cramps in her hands and abdomen while at work. Patient is noted to have a serum calcium of 6.9. Magnesium was 1.6. Intact PTH was low at 12.2. Patient reports similar episodes a few months ago. She has been maintained on calcium supplements as outpatient. There is history of total thyroidectomy about a year ago for thyroid nodules. No family history of hypercalcemia or hypocalcemia No history of use of any new medications or bisphosphonates Review of Systems As per HPI other other systems negative Past Medical History Past Medical History: Asthma, Hypertension Additional Past Medical History / Comment(s): SUPERICIAL BLOOD CLOT in left leg, DID REQUIRE HEPARIN. INFLAMMATION OF RIGHT KIDNEY since 03/2022. cold sores, varicose vein, right ear tumor-surgically removed History of Any Multi-Drug Resistant Organisms: None Reported Past Surgical History: Appendectomy, Cholecystectomy, Ear Surgery, Orthopedic Surgery, Tubal Ligation, Uterine Ablation Additional Past Surgical History / Comment(s): 06/06/18 EGD. DURING APPENDECTOMY, IT WAS NOTED IT WAS "PULLING ON KIDNEY" AND BLOCKING DRAINAGE. Bladder lift. R rotator cuff, tube in right ear in fall 2021, thyroiectomy r/t nodules, Past Anesthesia/Blood Transfusion Reactions: No Reported Reaction, Postoperative Nausea & Vomiting (PONV) Additional Past Anesthesia/Blood Transfusion Reaction / Comment(s): no hx blood transfusion,vertigo Past Psychological History: Anxiety, Depression Smoking Status: Never smoker Past Alcohol Use History: None Reported Past Drug Use History: None Reported - Past Family History Mother Family Medical History: Sleep Apnea/CPAP/BIPAP Father Family Medical History: Deep Vein Thrombosis (DVT) Medications and Allergies Home Medications Medication Instructions Recorded Confirmed Type ALPRAZolam [Xanax] 0.25 mg PO BID PRN 10/26/16 05/19/22 History Oxybutynin Chloride 5 mg PO BID 05/18/18 05/19/22 History PARoxetine [Paxil] 20 mg PO QAM 05/18/18 05/19/22 History Albuterol Sulfate [Albuterol 2 puff PO RT-Q6H PRN 05/19/22 05/19/22 History Sulfate Hfa] Levothyroxine Sodium [Synthroid] 175 mcg PO DAILY 05/19/22 05/19/22 History Omeprazole Magnesium [PriLOSEC OTC] 20 mg PO DAILY 05/19/22 05/19/22 History atenoloL [Tenormin] 25 mg PO DAILY 05/19/22 05/19/22 History Allergies Allergy/AdvReac Type Severity Reaction Status Date / Time lisinopril Allergy Anaphylaxis Verified 05/19/22 08:06 sulfamethoxazole Allergy Rash/Hives Verified 05/19/22 08:06 [From Bactrim] trimethoprim [From Bactrim] Allergy Rash/Hives Verified 05/19/22 08:06 Corticosteroids AdvReac skin Verified 05/19/22 08:06 (Glucocorticoids) flushing and swelling sertraline HCl [From Zoloft] AdvReac Nausea & Verified 05/19/22 08:06 Vomiting & Diarrhea Physical Exam Vitals: Vital Signs Temp Pulse Pulse Resp BP BP Pulse Ox 05/20/22 12:57 97.9 F 49 L 18 120/77 97 05/20/22 12:12 61 05/20/22 07:35 97.6 F 50 L 18 121/75 97 05/20/22 01:56 97.9 F 59 L 15 105/71 98 05/19/22 19:44 97.8 F 68 15 116/74 96 05/19/22 16:55 97.7 F 53 L 18 129/76 97 05/19/22 15:34 97.7 F 57 L 18 132/91 97 Intake and Output 05/19/22 05/20/22 05/20/22 22:59 06:59 14:59 Other: Voiding Method Toilet # Voids 1 3 Weight 123.377 kg Patient is awake, comfortable, no acute distress Examination of the heart S1 and S2 Examination of the lungs bilateral breath sounds are heard Abdomen is soft nontender Examination lower extremity shows no evidence of edema [employer]IST exam grossly intact Results - Lab Results Most recent lab results Calcium 6.9 mg/dL (8.7-10.3) L 05/20/22 06:01 Phosphorus 5.8 mg/dL (2.5-4.5) H 05/19/22 10:49 Magnesium 1.9 mg/dL (1.5-2.4) 05/20/22 06:01 05/20/22 06:01 05/20/22 06:01 Assessment and Plan Assessment: 1. Hypocalcemia secondary to hypoparathyroidism related to recent thyroidectomy about a year ago. Patient needs to start NATPARA which is synthetic parathyroid hormone. Patient will need to continue with calcium supplementation as well. 25 hydroxyvitamin D is also low and this will be replaced. 2. Status post total thyroidectomy for thyroid nodules currently maintained on Synthroid 3. Hypertension entertained on Tenormin 4. Hypokalemia status post replacement Plan: Maintain calcium supplementation Replace vitamin D aggressively Add Rocaltrol Start natpara which is synthetic parathyroid hormone. If this is not available patient will need to start this as outpatient through endocrinology. Hopefully patient will not need this long-term and she may regain some parathyroid function as the parathyroid glands were left behind as per patient. Thank you for the consultation. We will continue to follow the patient with you during her hospitalization
[2022-05-20] MEDS ORDERED: ERGOCALCIFEROL 1,250 MCG (50,000 IU) CAPSULE PO SCH (15:00)
[2022-05-20] MEDS: CALCIUM CARBONATE 500 MG CHEWABLE PO SCH ×2 (15:45→22:27)
--- NOTE | 2022-05-20 23:44 | PN ---
PROGRESS NOTE DATE OF SERVICE: 05/20/2022 SUBJECTIVE: This 51-year-old woman, who was admitted with significant hypocalcemia, is being closely monitored at this time. Calcium is 6.9 currently and the mag is 1.9 and phosphorus is 5.8, which is high, suggestive of primary hypoparathyroidism. Dr. Rene has recommended synthetic parathyroid hormone. No chest pain. No palpitations. No fever. OBJECTIVE: VITAL SIGNS: Pulse is 49, blood pressure , respirations 18. HEENT: Conjunctivae normal. NECK: No JVD. CARDIOVASCULAR: S1, S2. RESPIRATIONS: Breath sounds diminished at the bases. ABDOMEN: Soft. NERVOUS SYSTEM: Nonfocal. LABORATORY DATA: Reviewed. ASSESSMENT: 1. Severe hypocalcemia, possibly primary hypoparathyroidism. 2. Hypokalemia. 3. Spasms. 4. Hypertension. 5. Multiple medical issues. RECOMMENDATIONS: I recommend to continue current medications and symptomatic treatment. Continue synthetic parathyroid hormone, otherwise monitor calcium closely, supplementation, and closely follow with Endocrine as outpatient. Continue with rest of medications. Further recommendations to follow. MMODL / IJN: [id number] /
[2022-05-21] MEDS: LEVOTHYROXINE 100 MCG TAB PO SCH (05:32)
[2022-05-21] MEDS: LEVOTHYROXINE 75 MCG TAB PO SCH (05:32)
[2022-05-21] MEDS: PANTOPRAZOLE 40 MG TABLET PO SCH (06:31)
[2022-05-21 08:55] VITALS: BP 151/88; PULSE 56; RESP 18; TEMP 98.4
[2022-05-21] MEDS: PARoxetine 20 MG TAB PO SCH (09:29)
[2022-05-21] MEDS: CALCIUM CARBONATE 500 MG CHEWABLE PO SCH (09:29)
[2022-05-21] MEDS: OXYBUTYNIN CHLORIDE 5 MG TAB PO SCH (09:29)
[2022-05-21] MEDS: atenoloL 25 MG TAB PO SCH (09:29)
[2022-05-21 09:34] LABS: Magnesium 1.8 mg/dL (1.5-2.4); Potassium 4.3 mmol/L (3.5-5.5)
[2022-05-21] MEDS ORDERED: MAGNESIUM OXIDE 400 MG TAB PO SCH (10:00)
--- NOTE | 2022-05-22 16:48 | P.DS ---
Providers Date of admission: 05/19/22 02:35 Expected date of discharge: 05/21/22 Attending physician: Michelle Zelaya Consults: 05/19/22 10:54 Consult Physician Urgent Consulting Provider: Cathy Dang Consult Reason/Comments: hypocalcemia Do you want consulting provider notified?: Yes Primary care physician: Escobar Irizarry [facility] Hospital Course: Final diagnosis Severe hypocalcemia, possibly primary hypoparathyroidism hypokalemia Urinary frequency with urgency, possible acute urinary tract infection, present on admission Hypomagnesemia Muscle spasms Hypertension Morbid Obesity with a body mass index of 46.7 Full code Discharge disposition Patient is being discharged in a stable condition with guarded prognosis to home. Patient will follow-up with Dr. Irizarry in the outpatient setting upon discharge. Patient is to follow up with endocrine outpatient as scheduled. Recommend daily supplements and labs in the next 2-3 days. Total time taken is greater than 35 minutes. Hospital course This is a 51-year-old female who was recently admitted With hypocalcemia and also muscle cramps and spasms being closely monitored. Patient was seen and evaluated by nephrology had some further testing done and was started on vitamin supplementation. Recommend outpatient follow-up with endocrine specialist and resources were provided. Patient showed improvement and will continue with daily supplementation of magnesium and calcium with close outpatient follow-up and labs in next few days. Patient was having some frequency and urgency with urination and urinalysis was negative although patient continued with symptoms will give 3 days of Ceftin and encourage the patient to follow-up with primary care provider this week. Currently no reports of chest pain, shortness of breat h, or palpitations. Patient is afebrile. No reports of nausea or vomiting and patient is tolerating diet. Patient will be discharged home today Physical exam: Gen: This is a 51 -year-old female who is awake, alert and oriented 3, well- developed, well-nourished, morbidly obese HEENT: Head is atraumatic, normocephalic. Pupils equal, round. Sclerae is anicteric. NECK: Supple. No JVD. No lymphadenopathy. No thyromegaly. LUNGS: Clear to auscultation. No wheezes or rhonchi. No intercostal retractions. HEART: Regular rate and rhythm. No murmur. ABDOMEN: Soft. Bowel sounds are present. No masses. No tenderness. EXTREMITIES: No pedal edema. No calf tenderness. NEUROLOGICAL: Patient is awake, alert and oriented x3. Cranial nerves 2 through 12 are grossly intact. Please refer to medication reconciliation sheet for a list of medications. The impression and plan of care has been dictated by Chantale Villalba, Nurse Practitioner as directed. Dr. Nia MD I have performed a history and examination and MDM of this patient, discussed the same with the dictator, and agree with the dictator's assessment and plan as written ,documented as a scribe. Based on total visit time, I have performed more than 50% of the visit. Patient Condition at Discharge: Good Plan - Discharge Summary Discharge Rx Participant: No New Discharge Prescriptions: New calcitrioL [Rocaltrol] 0.25 mcg PO Q48H 30 Days #15 cap Calcium Carbonate [Tums] 1,000 mg PO TID 30 Days #90 tab Acetaminophen Tab [Tylenol] 650 mg PO Q6HR PRN tab PRN Reason: Mild Pain Or Fever > 100.5 Ergocalciferol [Vitamin D2 (1250 Mcg = 37000 Iu)] 1,250 mcg PO Q72H #15 cap Magnesium Oxide [Mag-Ox] 400 mg PO DAILY #30 tab cefUROXime axetiL [Ceftin] 500 mg PO BID 3 Days #6 tab Continue ALPRAZolam [Xanax] 0.25 mg PO BID PRN PRN Reason: Anxiety PARoxetine [Paxil] 20 mg PO QAM Oxybutynin Chloride 5 mg PO BID Albuterol Sulfate [Albuterol Sulfate Hfa] 2 puff PO RT-Q6H PRN PRN Reason: Shortness Of Breath Omeprazole Magnesium [PriLOSEC OTC] 20 mg PO DAILY atenoloL [Tenormin] 25 mg PO DAILY Levothyroxine Sodium [Synthroid] 175 mcg PO DAILY Discharge Medication List ALPRAZolam [Xanax] 0.25 mg PO BID PRN 10/26/16 [History] Oxybutynin Chloride 5 mg PO BID 05/18/18 [History] PARoxetine [Paxil] 20 mg PO QAM 05/18/18 [History] Albuterol Sulfate [Albuterol Sulfate Hfa] 2 puff PO RT-Q6H PRN 05/19/22 [History] Levothyroxine Sodium [Synthroid] 175 mcg PO DAILY 05/19/22 [History] Omeprazole Magnesium [PriLOSEC OTC] 20 mg PO DAILY 05/19/22 [History] atenoloL [Tenormin] 25 mg PO DAILY 05/19/22 [History] Acetaminophen Tab [Tylenol] 650 mg PO Q6HR PRN tab 05/21/22 [Rx] Calcium Carbonate [Tums] 1,000 mg PO TID 30 Days #90 tab 05/21/22 [Rx] Ergocalciferol [Vitamin D2 (1250 Mcg = 53274 Iu)] 1,250 mcg PO Q72H #15 cap 05/21/22 [Rx] Magnesium Oxide [Mag-Ox] 400 mg PO DAILY #30 tab 05/21/22 [Rx] calcitrioL [Rocaltrol] 0.25 mcg PO Q48H 30 Days #15 cap 05/21/22 [Rx] cefUROXime axetiL [Ceftin] 500 mg PO BID 3 Days #6 tab 05/21/22 [Rx] Follow up Appointment(s)/Referral(s): Escobar Irizarry MD [Primary Care Provider] - 05/24/22 11:15 am Bridgett Sal MD [STAFF PHYSICIAN] - 1 Week (Patient needs to call to make a follow up appointment) Ambulatory/Diagnostic Orders: Comprehensive Metabolic Panel [LAB.AMB] Time Frame: 3 Days, Location: None Selected Patient Instructions/Handouts: Cefuroxime (By mouth), Calcitriol (By mouth), Ergocalciferol (By mouth), Magnesium Oxide (By mouth), Hypocalcemia (DC) Activity/Diet/Wound Care/Special Instructions: Activity Limited until follow-up Continue taking medications as prescribed Follow-up with endocrine outpatient Follow-up primary care provider on discharge Discharge Disposition: HOME SELF-CARE
== END 2022-05-21 13:08 | disposition home or self-care (01) | DRG 641 ==
LOC: EC 20:52 → 5NMEDONC 05-19 02:35
PROVIDERS: ADMIT Hospitalist; ATTEND Hospitalist
DX: E83.51 Hypocalcemia (principal); E20.9 Hypoparathyroidism, unspecified; E87.6 Hypokalemia; E89.0 Postprocedural hypothyroidism; J45.909 Unspecified asthma, uncomplicated; I10 Essential (primary) hypertension; R55 Syncope and collapse; K52.9 Noninfective gastroenteritis and colitis, unspecified; M62.838 Other muscle spasm; Z79.51 Long term (current) use of inhaled steroids; Z79.890 Hormone replacement therapy; Z79.899 Other long term (current) drug therapy; Z86.718 Personal history of other venous thrombosis and embolism; Z88.1 Allergy status to other antibiotic agents; Z88.8 Allergy status to other drugs, medicaments and biological substances; Z90.49 Acquired absence of other specified parts of digestive tract; Z98.51 Tubal ligation status
CPT/HCPCS: 36415; 80048; 80053; 81003; 82306; 82652; 83735; 83970; 84100; 84132; 84443; 84484; 85025; 93005; 96365; 96375; 96376; 99285